=== PATIENT | female | born 1965 | race Caucasian/White ===

== ENCOUNTER 2017-09-18 18:59 | Inpatient (IN) ==
[2017-09-18 20:36] LABS: Basophils # 0.1 10*3/uL (0.0-0.2); Basophils % 0.6 % (0.0-0.8); Eosinophils # 0.2 10*3/uL (0.0-0.87); Eosinophils % 2.4 % (0.00-10.9); Hematocrit 39.3 VOL% (35.7-47.0); Hemoglobin 13.1 GM/DL (12.0-16.0); Immature Granulocytes % 0.2 %; Immature Granulocytes Absolute 0.02 #; Lymphocytes % 25.2 % (21.3-54.2); Mean Corpuscular HGB Conc 33.3 GM/DL (32-36); Mean Corpuscular Hemoglobin 29 PG (27-34); Mean Corpuscular Volume 87.9 FL (87-102); Mean Platelet Volume 10.1 FL (9.6-12.0); Monocytes # 0.7 10*3/uL (0.11-0.8); Neutrophils # 5.1 10*3/uL (1.4-7.4); Neutrophils % 63.6 % (38.7-73.9); Platelet Count 179 T/CUMM (130-400); Red Blood Count 4.47 MC/CUMM (3.8-5.5); Red Cell Distribution Width 13.3 % (9.3-17.3); White Blood Count 8.1 T/CUMM (4-12)
[2017-09-18 20:45] LABS: Apearance,Urine CLEAR (Clear); Bilirubin,Urine Negative (Negative); Blood, Urine Moderate mg/dL (Negative); Glucose,Urine (UA) Negative (Negative); Ketones,Urine Negative (Negative); Nitrite,Urine Negative (Negative); Protein,Urine Negative; RBC,Urine 1 /HPF (0-4); Squamous Epithelial Cell,Urine Occasional /HPF (0-10); Urine Color Yellow (Yellow); Urine Specific Gravity 1.006 (1.001-1.035); Urine Urobilinogen < 2.0 EU/DL (0.2-1.0); WBC,Urine <1 /HPF (0-6)
[2017-09-18 20:56] LABS: Bilirubin,Total 0.5 MG/DL (0.2-1.0); Osmolality,Calculated 276.5 MOS/KG (273-304); Potassium 2.7 MMOL/L (3.5-5.1); Total Protein 6.6 G/DL (6.4-8.3)
[2017-09-18] MEDS ORDERED: POTASSIUM CHLORIDE 20 MEQ TABLET PO STA (22:23)
[2017-09-18] MEDS ORDERED: metroNIDAZOLE INJ 500 MG in PREMIX 1 EACH IV STA (22:50)
[2017-09-18] MEDS ORDERED: LEVOFLOXACIN INJ 500 MG in PREMIX 1 EACH IV STA (22:50)
[2017-09-18] MEDS ORDERED: MORPHINE 2 MG/1 ML SYRINGE IV PRN (22:51)
[2017-09-18] MEDS ORDERED: ONDANSETRON 4 MG/2 ML VIAL IV PRN (22:51)
[2017-09-18] MEDS ORDERED: SODIUM CHLORIDE 0.9% 1,000 ML IV SCH (23:00)
[2017-09-18] MEDS ORDERED: LEVOFLOXACIN INJ 100 ML IV ONE (23:03)
[2017-09-18] MEDS ORDERED: POTASSIUM CHLORIDE 20 MEQ TABLET PO ONE (23:03)
[2017-09-18] MEDS ORDERED: SODIUM CHLOR 0.9% KCL 40 MEQ 40 MEQ/1,000 ML BAG IV ONE (23:31)
[2017-09-18] MEDS: SODIUM CHLOR 0.9% KCL 40 MEQ 40 MEQ/1,000 ML BAG IV SCH (23:31)
[2017-09-19 06:14] LABS: Basophils % 0.5 % (0.0-0.8); Eosinophils # 0.2 10*3/uL (0.0-0.87); Eosinophils % 3.1 % (0.00-10.9); Hematocrit 37.1 VOL% (35.7-47.0); Hemoglobin 12.4 GM/DL (12.0-16.0); Immature Granulocytes % 0.4 %; Immature Granulocytes Absolute 0.02 #; Lymphocytes # 1.8 10*3/uL (1.4-4.0); Lymphocytes % 33.3 % (21.3-54.2); Mean Corpuscular HGB Conc 33.4 GM/DL (32-36); Mean Corpuscular Hemoglobin 29 PG (27-34); Mean Corpuscular Volume 87.7 FL (87-102); Mean Platelet Volume 10.8 FL (9.6-12.0); Monocytes # 0.5 10*3/uL (0.11-0.8); Monocytes % 8.5 % (1.7-12.7); Neutrophils % 54.2 % (38.7-73.9); Platelet Count 158 T/CUMM (130-400); Red Blood Count 4.23 MC/CUMM (3.8-5.5); Red Cell Distribution Width 13.5 % (9.3-17.3); White Blood Count 5.5 T/CUMM (4-12)
[2017-09-19 07:39] LABS: Calcium 7.7 MG/DL (8.5-10.1); Osmolality,Calculated 283.8 MOS/KG (273-304); Potassium 3.4 MMOL/L (3.5-5.1)
[2017-09-19] MEDS ORDERED: predniSONE 5 MG TABLET PO SCH (09:00)
[2017-09-19] MEDS ORDERED: LISINOPRIL 10 MG TABLET PO SCH (09:00)
[2017-09-19] MEDS: metroNIDAZOLE INJ 500 MG in PREMIX 1 EACH IV SCH ×2 (09:47→17:51)
[2017-09-19] MEDS: SODIUM CHLOR 0.9% KCL 40 MEQ 40 MEQ/1,000 ML BAG IV SCH (11:05)
[2017-09-19] MEDS: ESTRADIOL 1 MG TABLET PO SCH (11:06)
[2017-09-19] MEDS: PANTOPRAZOLE 40 MG TABLET PO SCH (11:07)
[2017-09-19] MEDS: SERTRALINE 50 MG TABLET PO SCH (11:07)
[2017-09-19] MEDS ORDERED: POTASSIUM CHLORIDE 20 MEQ TABLET PO PRN (13:56)
[2017-09-19] MEDS ORDERED: POTASSIUM CHLORIDE 20 MEQ TABLET PO ONE (13:56)
[2017-09-19] MEDS ORDERED: SODIUM CHLORIDE 0.45% 1,000 ML IV SCH (14:00)
[2017-09-19] MEDS ORDERED: methylPREDNISolone SOD SUC 40 MG/1 ML VIAL IV SCH (15:00)
[2017-09-19] MEDS ORDERED: KETOROLAC 15 MG/1 ML VIAL IV ONE ×2 (15:00→15:30)
[2017-09-19] MEDS: methylPREDNISolone SOD SUC 40 MG/1 ML VIAL IV SCH ×2 (15:28→22:53)
[2017-09-19] MEDS: ALBUTEROL/IPRATROPIUM 3 ML NEB RESP TX SCH (19:33)
[2017-09-19] MEDS: LISINOPRIL 10 MG TABLET PO SCH (21:04)
[2017-09-19] MEDS: LEVOFLOXACIN INJ 500 MG in PREMIX 1 EACH IV SCH (21:04)
[2017-09-20] MEDS: metroNIDAZOLE INJ 500 MG in PREMIX 1 EACH IV SCH ×3 (01:56→16:03)
[2017-09-20] MEDS: ALBUTEROL/IPRATROPIUM 3 ML NEB RESP TX SCH ×4 (02:25→19:59)
[2017-09-20] MEDS: methylPREDNISolone SOD SUC 40 MG/1 ML VIAL IV SCH ×3 (06:11→22:48)
[2017-09-20 06:25] LABS: Basophils % 0.2 % (0.0-0.8); Hematocrit 39.6 VOL% (35.7-47.0); Hemoglobin 12.7 GM/DL (12.0-16.0); Immature Granulocytes % 0.4 %; Immature Granulocytes Absolute 0.02 #; Lymphocytes # 0.3 10*3/uL (1.4-4.0); Mean Corpuscular HGB Conc 32.1 GM/DL (32-36); Mean Corpuscular Hemoglobin 29 PG (27-34); Mean Corpuscular Volume 90.4 FL (87-102); Mean Platelet Volume 10.9 FL (9.6-12.0); Monocytes # 0.1 10*3/uL (0.11-0.8); Monocytes % 1.4 % (1.7-12.7); Neutrophils # 5.1 10*3/uL (1.4-7.4); Platelet Count 142 T/CUMM (130-400); Red Blood Count 4.38 MC/CUMM (3.8-5.5); Red Cell Distribution Width 13.2 % (9.3-17.3); White Blood Count 5.5 T/CUMM (4-12)
[2017-09-20 06:44] LABS: Calcium 8.2 MG/DL (8.5-10.1); Osmolality,Calculated 285.3 MOS/KG (273-304); Potassium 4.1 MMOL/L (3.5-5.1)
[2017-09-20 07:44] LABS: Band Neutrophils 2 % (0-10); Hypochromasia Slight; Lymphocytes 6 % (20-55); Platelet Estimate Adequate; Segmented Neutrophils 91 % (50-85); Total Cells Counted 100
[2017-09-20] MEDS: PANTOPRAZOLE 40 MG TABLET PO SCH (08:29)
[2017-09-20] MEDS: LISINOPRIL 10 MG TABLET PO SCH ×2 (08:29→20:50)
[2017-09-20] MEDS: ESTRADIOL 1 MG TABLET PO SCH (08:29)
[2017-09-20] MEDS: SERTRALINE 50 MG TABLET PO SCH (08:30)
[2017-09-20] MEDS ORDERED: MAGNESIUM SULF RIDER 2 GM in PREMIX 1 EACH IV ONE (09:31)
[2017-09-20] MEDS ORDERED: DEXTROSE 50% 25 GM/50 ML VIAL IV PRN (09:32)
[2017-09-20] MEDS ORDERED: GLUCAGON 1 MG VIAL IM PRN (09:32)
[2017-09-20] MEDS: INSULIN REGULAR 100 UNIT/ML SUBCUT SCH ×3 (12:50→20:57)
[2017-09-20] MEDS: LEVOFLOXACIN INJ 500 MG in PREMIX 1 EACH IV SCH (20:50)
[2017-09-21] MEDS: metroNIDAZOLE INJ 500 MG in PREMIX 1 EACH IV SCH ×3 (00:47→16:08)
[2017-09-21] MEDS: ALBUTEROL/IPRATROPIUM 3 ML NEB RESP TX SCH ×4 (01:10→19:30)
[2017-09-21] MEDS: methylPREDNISolone SOD SUC 40 MG/1 ML VIAL IV SCH ×3 (06:11→22:07)
[2017-09-21 06:45] LABS: Basophils % 0.1 % (0.0-0.8); Hematocrit 37.7 VOL% (35.7-47.0); Hemoglobin 12.2 GM/DL (12.0-16.0); Immature Granulocytes % 0.4 %; Immature Granulocytes Absolute 0.04 #; Lymphocytes # 0.5 10*3/uL (1.4-4.0); Lymphocytes % 4.6 % (21.3-54.2); Mean Corpuscular HGB Conc 32.4 GM/DL (32-36); Mean Corpuscular Hemoglobin 29 PG (27-34); Mean Corpuscular Volume 90.2 FL (87-102); Monocytes # 0.2 10*3/uL (0.11-0.8); Monocytes % 2.1 % (1.7-12.7); Neutrophils # 9.1 10*3/uL (1.4-7.4); Neutrophils % 92.8 % (38.7-73.9); Platelet Count 165 T/CUMM (130-400); Red Blood Count 4.18 MC/CUMM (3.8-5.5); Red Cell Distribution Width 13.8 % (9.3-17.3); White Blood Count 9.8 T/CUMM (4-12)
[2017-09-21 07:20] LABS: Calcium 8.8 MG/DL (8.5-10.1); Osmolality,Calculated 283.3 MOS/KG (273-304); Potassium 3.5 MMOL/L (3.5-5.1)
[2017-09-21 07:39] LABS: Eosinophils 1 % (0-10); Lymphocytes 3 % (20-55); Polychromasia Slight; Segmented Neutrophils 95 % (50-85); Total Cells Counted 100
[2017-09-21 07:40] LABS: Hypochromasia Slight; Platelet Estimate Adequate
[2017-09-21] MEDS: SERTRALINE 50 MG TABLET PO SCH (08:52)
[2017-09-21] MEDS: ESTRADIOL 1 MG TABLET PO SCH (08:52)
[2017-09-21] MEDS: PANTOPRAZOLE 40 MG TABLET PO SCH (08:52)
[2017-09-21] MEDS: LISINOPRIL 10 MG TABLET PO SCH ×2 (08:53→21:46)
[2017-09-21] MEDS: INSULIN REGULAR 100 UNIT/ML SUBCUT SCH ×4 (08:54→21:47)
[2017-09-21] MEDS ORDERED: LOPERAMIDE 2 MG CAPSULE PO PRN (10:40)
[2017-09-21] MEDS: hydrALAZINE 20 MG/1 ML VIAL IV PRN ×2 (11:48→18:30)
[2017-09-21] MEDS: LEVOFLOXACIN INJ 500 MG in PREMIX 1 EACH IV SCH (21:47)
[2017-09-22] MEDS: ALBUTEROL/IPRATROPIUM 3 ML NEB RESP TX SCH ×3 (00:56→13:11)
[2017-09-22] MEDS: metroNIDAZOLE INJ 500 MG in PREMIX 1 EACH IV SCH ×3 (01:15→18:07)
[2017-09-22 06:06] LABS: Calcium 8.6 MG/DL (8.5-10.1); Osmolality,Calculated 283.1 MOS/KG (273-304); Potassium 3.4 MMOL/L (3.5-5.1)
[2017-09-22] MEDS: methylPREDNISolone SOD SUC 40 MG/1 ML VIAL IV SCH ×2 (06:19→18:07)
[2017-09-22] MEDS: INSULIN REGULAR 100 UNIT/ML SUBCUT SCH ×3 (08:44→18:07)
[2017-09-22] MEDS: LISINOPRIL 10 MG TABLET PO SCH (09:57)
[2017-09-22] MEDS: ESTRADIOL 1 MG TABLET PO SCH (09:57)
[2017-09-22] MEDS: SERTRALINE 50 MG TABLET PO SCH (09:57)
[2017-09-22] MEDS: PANTOPRAZOLE 40 MG TABLET PO SCH (09:57)
[2017-09-22 16:21] VITALS: BP 165/85
== END 2017-09-22 19:58 | disposition home or self-care (01) | DRG 760 ==
LOC: N.ED 18:59 → N.EDINP 22:51 → N.2E 23:38
PROVIDERS: ADMIT Internal Medicine; ATTEND Internal Medicine

== ENCOUNTER 2018-08-26 13:55 | Inpatient (IN) ==
[2018-08-26] MEDS ORDERED: ONDANSETRON 4 MG/2 ML VIAL IV PRN (14:03)
[2018-08-26] MEDS ORDERED: KETOROLAC 30 MG/1 ML VIAL IV PRN (14:03)
[2018-08-26] MEDS ORDERED: MAGNESIUM HYDROXIDE SUSP 30 ML UDCUP PO PRN (14:03)
[2018-08-26] MEDS ORDERED: ACETAMINOPHEN 325 MG TABLET PO PRN (14:03)
[2018-08-26] MEDS ORDERED: traMADol 50 MG TABLET PO PRN (14:13)
[2018-08-26] MEDS ORDERED: ALBUTEROL/IPRATROPIUM 3 ML NEB RESP TX PRN (14:13)
[2018-08-26] MEDS ORDERED: hydrALAZINE 20 MG/1 ML VIAL IV PRN (14:15)
[2018-08-26 16:04] LABS: Basophils % 0.4 % (0.0-0.8); Eosinophils % 0.1 % (0.00-10.9); Hematocrit 43.1 VOL% (35.7-47.0); Hemoglobin 13.2 GM/DL (12.0-16.0); Immature Granulocytes % 0.6 %; Immature Granulocytes Absolute 0.04 #; Lymphocytes # 1.4 10*3/uL (1.4-4.0); Lymphocytes % 19.9 % (21.3-54.2); Mean Corpuscular HGB Conc 30.6 GM/DL (32-36); Mean Corpuscular Hemoglobin 29 PG (27-34); Mean Corpuscular Volume 95.8 FL (87-102); Mean Platelet Volume 10.2 FL (9.6-12.0); Monocytes # 0.4 10*3/uL (0.11-0.8); Monocytes % 5.4 % (1.7-12.7); Neutrophils # 5.3 10*3/uL (1.4-7.4); Neutrophils % 73.6 % (38.7-73.9); Platelet Count 167 T/CUMM (130-400); Red Cell Distribution Width 13.8 % (9.3-17.3); White Blood Count 7.2 T/CUMM (4-12)
[2018-08-26 16:24] LABS: Alanine Aminotransferase 31 U/L (13-56); Albumin 2.7 G/DL (3.4-5.0); Alkaline Phosphatase 113 U/L (45-117); Aspartate Amino Transferase 25 U/L (0-37); Bilirubin,Total < 0.39 MG/DL (0.2-1.0); Blood Urea Nitrogen 13 MG/DL (7-18); Calcium 8.3 MG/DL (8.5-10.1); Glucose 149 MG/DL (74-106); Osmolality,Calculated 279.5 MOS/KG (273-304); Potassium 3.3 MMOL/L (3.5-5.1); Sodium 139 MMOL/L (136-145); Total Protein 7.1 G/DL (6.4-8.3)
[2018-08-26] MEDS: LIDOCAINE 5% PATCH TRANSDERM SCH (18:21)
[2018-08-26] MEDS: SODIUM CHLORIDE 0.9% 1,000 ML IV SCH (18:27)
[2018-08-26] MEDS: ENOXAPARIN 40 MG/0.4 ML SYRINGE SUBCUT SCH (21:14)
[2018-08-26] MEDS: LISINOPRIL 20 MG TABLET PO SCH (21:15)
[2018-08-26] MEDS: DOCUSATE SODIUM 100 MG CAPSULE PO SCH ×2 (21:15→21:17)
[2018-08-26] MEDS ORDERED: MAGNESIUM SULF RIDER 2 GM in PREMIX 1 EACH IV ONE (21:31)
[2018-08-26] MEDS: POTASSIUM CHLORIDE 20 MEQ TABLET PO SCH (22:22)
[2018-08-26] MEDS: busPIRone 5 MG TABLET PO SCH (22:23)
[2018-08-26] MEDS: hydrALAZINE 25 MG TABLET PO SCH (22:24)
[2018-08-26] MEDS: MELATONIN 3 MG TABLET PO SCH (22:24)
[2018-08-27 04:44] LABS: Calcium 8.2 MG/DL (8.5-10.1); Osmolality,Calculated 277.5 MOS/KG (273-304); Potassium 3.4 MMOL/L (3.5-5.1)
[2018-08-27] MEDS: SODIUM CHLORIDE 0.9% 1,000 ML IV SCH (05:49)
[2018-08-27] MEDS: hydrALAZINE 25 MG TABLET PO SCH (08:31)
[2018-08-27] MEDS: busPIRone 5 MG TABLET PO SCH ×2 (08:32→21:39)
[2018-08-27] MEDS: DOCUSATE SODIUM 100 MG CAPSULE PO SCH ×2 (08:35→21:39)
[2018-08-27] MEDS: LIDOCAINE 5% PATCH TRANSDERM SCH (08:35)
[2018-08-27] MEDS: POTASSIUM CHLORIDE 20 MEQ TABLET PO SCH ×2 (08:35→21:39)
[2018-08-27] MEDS: ESTRADIOL 1 MG TABLET PO SCH (08:35)
[2018-08-27] MEDS: predniSONE 10 MG TABLET PO SCH (08:35)
[2018-08-27] MEDS: CITALOPRAM 40 MG TABLET PO SCH (08:35)
[2018-08-27] MEDS: PANTOPRAZOLE 40 MG TABLET PO SCH (08:36)
[2018-08-27] MEDS: LISINOPRIL 20 MG TABLET PO SCH ×2 (08:36→21:39)
[2018-08-27] MEDS ORDERED: POTASSIUM CHLORIDE 20 MEQ TABLET PO ONE (10:43)
[2018-08-27] MEDS: cloNIDine 0.1 MG TABLET PO SCH (21:39)
[2018-08-27] MEDS: ENOXAPARIN 40 MG/0.4 ML SYRINGE SUBCUT SCH (21:39)
[2018-08-27] MEDS: MELATONIN 3 MG TABLET PO SCH (21:40)
[2018-08-28 05:13] LABS: Calcium 8.3 MG/DL (8.5-10.1); Osmolality,Calculated 277.5 MOS/KG (273-304)
[2018-08-28] MEDS: ESTRADIOL 1 MG TABLET PO SCH (08:20)
[2018-08-28] MEDS: DOCUSATE SODIUM 100 MG CAPSULE PO SCH (08:20)
[2018-08-28] MEDS: busPIRone 5 MG TABLET PO SCH (08:20)
[2018-08-28] MEDS: CITALOPRAM 40 MG TABLET PO SCH (08:20)
[2018-08-28] MEDS: LIDOCAINE 5% PATCH TRANSDERM SCH (08:20)
[2018-08-28] MEDS: LISINOPRIL 20 MG TABLET PO SCH (08:20)
[2018-08-28] MEDS: POTASSIUM CHLORIDE 20 MEQ TABLET PO SCH (08:20)
[2018-08-28] MEDS: cloNIDine 0.1 MG TABLET PO SCH (08:20)
[2018-08-28] MEDS: PANTOPRAZOLE 40 MG TABLET PO SCH (08:20)
[2018-08-28] MEDS: predniSONE 10 MG TABLET PO SCH (08:20)
[2018-08-28 15:57] VITALS: BP 139/86
== END 2018-08-28 16:51 | disposition home or self-care (01) | DRG 305 ==
LOC: N.TELES 15:16
PROVIDERS: ADMIT Internal Medicine; ATTEND Internal Medicine

== ENCOUNTER 2019-02-03 08:04 | Inpatient (IN) ==
[2019-02-03] MEDS ORDERED: NALOXONE 0.4 MG/ML VIAL ONE (09:05)
[2019-02-03] MEDS ORDERED: NALOXONE 0.4 MG/ML VIAL IV STA (09:13)
[2019-02-03 09:24] LABS: Bilirubin,Total 0.5 MG/DL (0.2-1.0); Calcium 8.7 MG/DL (8.5-10.1); Osmolality,Calculated 285.3 MOS/KG (273-304); Total Protein 7.4 G/DL (6.4-8.3)
[2019-02-03 09:53] LABS: Basophils % 0.1 % (0.0-0.8); Hematocrit 44.7 VOL% (35.7-47.0); Hemoglobin 14.2 GM/DL (12.0-16.0); Immature Granulocytes % 0.5 %; Immature Granulocytes Absolute 0.08 #; Lymphocytes # 1.4 10*3/uL (1.4-4.0); Lymphocytes % 9.7 % (21.3-54.2); Mean Corpuscular HGB Conc 31.8 GM/DL (32-36); Mean Corpuscular Volume 93.3 FL (87-102); Mean Platelet Volume 9.9 FL (9.6-12.0); Monocytes % 6.1 % (1.7-12.7); Neutrophils % 83.6 % (38.7-73.9); Platelet Count 275 T/CUMM (130-400); Red Blood Count 4.79 MC/CUMM (3.8-5.5); Red Cell Distribution Width 14.1 % (9.3-17.3); White Blood Count 14.8 T/CUMM (4-12)
[2019-02-03 10:03] LABS: Apearance,Urine CLEAR (Clear); Bilirubin,Urine Negative (Negative); Blood, Urine Negative (Negative); Glucose,Urine (UA) >=500 mg/dL (Negative); Hyaline Casts,Urine 7 /LPF (0-3); Ketones,Urine Negative (Negative); Mucus,Urine Occasional /LPF (Occasional); Nitrite,Urine Negative (Negative); Protein,Urine >=500 MG/DL; RBC,Urine <1 /HPF (0-4); Squamous Epithelial Cell,Urine Occasional /HPF (0-10); Urine Color Yellow (Yellow); Urine Urobilinogen < 2.0 EU/DL (0.2-1.0)
[2019-02-03 10:37] LABS: Barbiturates Screen,Urine Negative (Negative); Benzodiazepines Screen,Urine Negative (Negative); Cannabinoid Screen,Urine Negative (Negative); Opiate Screen,Urine Positive (Negative); Phencyclidine Screen,Urine Negative (Negative)
[2019-02-03] MEDS ORDERED: ONDANSETRON 4 MG/2 ML VIAL IV PRN (14:14)
[2019-02-03] MEDS: SODIUM CHLORIDE 0.9% 1,000 ML IV SCH ×2 (14:55→23:17)
[2019-02-03] MEDS ORDERED: POTASSIUM CHLORIDE 20 MEQ TABLET PO ONE (15:14)
[2019-02-03] MEDS: cloNIDine 0.1 MG TABLET PO SCH ×2 (15:37→20:33)
[2019-02-03] MEDS: KETOROLAC 15 MG/1 ML VIAL IV PRN (15:37)
[2019-02-03] MEDS: cefTRIAXone 500 MG in SYRINGE 1 EACH IV SCH (17:15)
[2019-02-03] MEDS: methylPREDNISolone SOD SUC 40 MG/1 ML VIAL IV SCH (18:21)
[2019-02-03] MEDS: ALBUTEROL/IPRATROPIUM 3 ML NEB RESP TX SCH (19:00)
[2019-02-03] MEDS: DOCUSATE SODIUM 100 MG CAPSULE PO SCH (20:33)
[2019-02-03] MEDS ORDERED: LOPERAMIDE 2 MG CAPSULE PO PRN (22:47)
[2019-02-04] MEDS: ALBUTEROL/IPRATROPIUM 3 ML NEB RESP TX SCH ×4 (00:25→19:36)
[2019-02-04] MEDS: methylPREDNISolone SOD SUC 40 MG/1 ML VIAL IV SCH ×3 (04:34→18:48)
[2019-02-04 05:22] LABS: Eosinophils % 0.1 % (0.00-10.9); Hematocrit 37.4 VOL% (35.7-47.0); Hemoglobin 11.8 GM/DL (12.0-16.0); Immature Granulocytes % 0.6 %; Immature Granulocytes Absolute 0.05 #; Lymphocytes # 1.4 10*3/uL (1.4-4.0); Lymphocytes % 15.4 % (21.3-54.2); Mean Corpuscular HGB Conc 31.6 GM/DL (32-36); Mean Corpuscular Volume 96.4 FL (87-102); Mean Platelet Volume 10.4 FL (9.6-12.0); Monocytes % 6.4 % (1.7-12.7); Neutrophils % 77.5 % (38.7-73.9); Platelet Count 192 T/CUMM (130-400); Red Blood Count 3.88 MC/CUMM (3.8-5.5); Red Cell Distribution Width 14.3 % (9.3-17.3); White Blood Count 8.8 T/CUMM (4-12)
[2019-02-04 06:00] LABS: Albumin 2.5 G/DL (3.4-5.0); Bilirubin,Total 0.6 MG/DL (0.2-1.0); Total Protein 6.1 G/DL (6.4-8.3)
[2019-02-04] MEDS: SODIUM CHLORIDE 0.9% 1,000 ML IV SCH ×2 (06:08→14:20)
[2019-02-04] MEDS: ACETAMINOPHEN 325 MG TABLET PO PRN (09:37)
[2019-02-04] MEDS: DOCUSATE SODIUM 100 MG CAPSULE PO SCH ×2 (09:37→21:53)
[2019-02-04] MEDS: PANTOPRAZOLE 40 MG TABLET PO SCH (09:37)
[2019-02-04] MEDS: cloNIDine 0.1 MG TABLET PO SCH ×3 (09:37→21:53)
[2019-02-04] MEDS: cefTRIAXone 500 MG in SYRINGE 1 EACH IV SCH (15:51)
[2019-02-04] MEDS: KETOROLAC 15 MG/1 ML VIAL IV PRN (21:50)
[2019-02-05] MEDS: ALBUTEROL/IPRATROPIUM 3 ML NEB RESP TX SCH ×4 (00:03→19:05)
[2019-02-05] MEDS ORDERED: hydrALAZINE 20 MG/1 ML VIAL IV ONE (01:23)
[2019-02-05] MEDS: SODIUM CHLORIDE 0.9% 1,000 ML IV SCH ×3 (01:56→15:15)
[2019-02-05] MEDS: methylPREDNISolone SOD SUC 40 MG/1 ML VIAL IV SCH ×3 (03:44→18:15)
[2019-02-05 04:52] LABS: Basophils % 0.1 % (0.0-0.8); Hemoglobin 11.7 GM/DL (12.0-16.0); Immature Granulocytes % 0.9 %; Immature Granulocytes Absolute 0.08 #; Lymphocytes # 0.7 10*3/uL (1.4-4.0); Lymphocytes % 7.6 % (21.3-54.2); Mean Corpuscular HGB Conc 30.8 GM/DL (32-36); Mean Corpuscular Volume 97.4 FL (87-102); Monocytes % 5.1 % (1.7-12.7); Neutrophils % 86.3 % (38.7-73.9); Platelet Count 192 T/CUMM (130-400); Red Cell Distribution Width 14.2 % (9.3-17.3); White Blood Count 9.3 T/CUMM (4-12)
[2019-02-05] MEDS ORDERED: MAGNESIUM SULF RIDER 2 GM in PREMIX 1 EACH IV ONE (07:04)
[2019-02-05 07:24] LABS: Calcium 7.8 MG/DL (8.5-10.1); Osmolality,Calculated 287.7 MOS/KG (273-304)
[2019-02-05] MEDS: cloNIDine 0.1 MG TABLET PO SCH ×3 (08:53→21:11)
[2019-02-05] MEDS: DOCUSATE SODIUM 100 MG CAPSULE PO SCH ×2 (08:53→21:11)
[2019-02-05] MEDS: PANTOPRAZOLE 40 MG TABLET PO SCH (08:53)
[2019-02-05] MEDS: traMADol 50 MG TABLET PO PRN ×3 (08:58→21:11)
[2019-02-05] MEDS: cefTRIAXone 500 MG in SYRINGE 1 EACH IV SCH (15:30)
[2019-02-05] MEDS: hydrALAZINE 20 MG/1 ML VIAL IV PRN (16:41)
[2019-02-05] MEDS: LOSARTAN/HCTZ 50-12.5 MG TABLET PO SCH (16:41)
[2019-02-05] MEDS: COLESTIPOL 1 GM TABLET PO SCH (21:11)
[2019-02-05] MEDS: POTASSIUM CHLORIDE 20 MEQ TABLET PO PRN (22:14)
[2019-02-06] MEDS: ALBUTEROL/IPRATROPIUM 3 ML NEB RESP TX SCH ×4 (00:39→19:30)
[2019-02-06] MEDS: POTASSIUM CHLORIDE 20 MEQ TABLET PO PRN ×3 (01:31→09:05)
[2019-02-06] MEDS: hydrALAZINE 20 MG/1 ML VIAL IV PRN ×2 (01:32→09:04)
[2019-02-06] MEDS: methylPREDNISolone SOD SUC 40 MG/1 ML VIAL IV SCH ×3 (04:45→18:21)
[2019-02-06 07:27] LABS: Calcium 8.9 MG/DL (8.5-10.1); Osmolality,Calculated 282.1 MOS/KG (273-304)
[2019-02-06] MEDS: LOSARTAN/HCTZ 50-12.5 MG TABLET PO SCH (09:05)
[2019-02-06] MEDS: COLESTIPOL 1 GM TABLET PO SCH ×2 (09:05→21:59)
[2019-02-06] MEDS: DOCUSATE SODIUM 100 MG CAPSULE PO SCH ×2 (09:05→21:59)
[2019-02-06] MEDS: traMADol 50 MG TABLET PO PRN ×2 (09:05→21:59)
[2019-02-06] MEDS: cloNIDine 0.1 MG TABLET PO SCH ×4 (09:06→21:59)
[2019-02-06] MEDS: PANTOPRAZOLE 40 MG TABLET PO SCH (09:08)
[2019-02-06] MEDS ORDERED: VILAZODONE PO SCH (16:30)
[2019-02-06] MEDS: cefTRIAXone 500 MG in SYRINGE 1 EACH IV SCH (18:06)
[2019-02-06] MEDS ORDERED: CHLORTHALIDONE 25 MG TABLET PO SCH (19:38)
[2019-02-06] MEDS: VALSARTAN 160 MG TABLET PO SCH (19:46)
[2019-02-06] MEDS: CHLORTHALIDONE 25 MG TABLET PO SCH (19:46)
[2019-02-07] MEDS: ALBUTEROL/IPRATROPIUM 3 ML NEB RESP TX SCH ×3 (01:24→08:48)
[2019-02-07] MEDS: hydrALAZINE 20 MG/1 ML VIAL IV PRN (03:49)
[2019-02-07] MEDS: methylPREDNISolone SOD SUC 40 MG/1 ML VIAL IV SCH ×2 (03:50→10:46)
[2019-02-07] MEDS: COLESTIPOL 1 GM TABLET PO SCH (08:29)
[2019-02-07] MEDS: CHLORTHALIDONE 25 MG TABLET PO SCH (08:29)
[2019-02-07] MEDS: ACETAMINOPHEN 325 MG TABLET PO PRN (08:29)
[2019-02-07] MEDS: VALSARTAN 160 MG TABLET PO SCH (08:30)
[2019-02-07] MEDS: DOCUSATE SODIUM 100 MG CAPSULE PO SCH (08:30)
[2019-02-07] MEDS: cloNIDine 0.1 MG TABLET PO SCH (08:30)
[2019-02-07] MEDS: PANTOPRAZOLE 40 MG TABLET PO SCH (08:30)
[2019-02-07] MEDS ORDERED: VALSARTAN 160 MG TABLET PO SCH ×2 (09:00→19:37)
[2019-02-07] MEDS ORDERED: CHLORTHALIDONE 25 MG TABLET PO SCH ×2 (09:00→19:37)
[2019-02-07 12:11] VITALS: BP 153/99
== END 2019-02-07 12:40 | disposition home or self-care (01) | DRG 884 ==
LOC: N.ED 08:04 → N.EDINP 11:32 → N.5E 14:05
PROVIDERS: ADMIT Internal Medicine; ATTEND Internal Medicine

== ENCOUNTER 2019-07-26 22:06 | Observation (INO) ==
[2019-07-27 01:57] LABS: Basophils % 0.3 % (0.0-0.8); Eosinophils % 0.3 % (0.00-10.9); Hemoglobin 14.3 GM/DL (12.0-16.0); Immature Granulocytes % 0.5 %; Immature Granulocytes Absolute 0.06 #; Lymphocytes # 2.8 10*3/uL (1.4-4.0); Lymphocytes % 22.6 % (21.3-54.2); Mean Corpuscular HGB Conc 32.5 GM/DL (32-36); Mean Corpuscular Volume 89.4 FL (87-102); Mean Platelet Volume 10.1 FL (9.6-12.0); Monocytes % 7.5 % (1.7-12.7); Neutrophils % 68.8 % (38.7-73.9); Platelet Count 283 T/CUMM (130-400); Red Blood Count 4.92 MC/CUMM (3.8-5.5); White Blood Count 12.4 T/CUMM (4-12)
[2019-07-27 02:19] LABS: Albumin 3.3 G/DL (3.4-5.0); Bilirubin,Total 0.4 MG/DL (0.2-1.0); Calcium 9.5 MG/DL (8.5-10.1); Osmolality,Calculated 269.2 MOS/KG (273-304); Total Protein 8.2 G/DL (6.4-8.3)
[2019-07-27] MEDS ORDERED: LEVOFLOXACIN INJ 500 MG in PREMIX 1 EACH IV STA (02:35)
[2019-07-27] MEDS ORDERED: ONDANSETRON 4 MG/2 ML VIAL IV ONE (02:35)
[2019-07-27] MEDS ORDERED: MORPHINE 4 MG/1 ML VIAL IV STA (02:35)
[2019-07-27] MEDS ORDERED: ONDANSETRON 4 MG/2 ML VIAL IV PRN (02:49)
[2019-07-27] MEDS: SODIUM CHLORIDE 0.9% 1,000 ML IV SCH ×3 (05:51→21:31)
[2019-07-27] MEDS: MORPHINE 4 MG/1 ML VIAL IV PRN ×3 (05:51→21:47)
[2019-07-27 05:52] LABS: Basophils # 0.1 10*3/uL (0.0-0.2); Basophils % 0.5 % (0.0-0.8); Eosinophils # 0.1 10*3/uL (0.0-0.87); Eosinophils % 1.1 % (0.00-10.9); Hematocrit 42.2 VOL% (35.7-47.0); Hemoglobin 13.8 GM/DL (12.0-16.0); Immature Granulocytes % 0.3 %; Immature Granulocytes Absolute 0.04 #; Lymphocytes # 2.9 10*3/uL (1.4-4.0); Lymphocytes % 23.9 % (21.3-54.2); Mean Corpuscular HGB Conc 32.7 GM/DL (32-36); Mean Corpuscular Volume 89.6 FL (87-102); Mean Platelet Volume 10.1 FL (9.6-12.0); Monocytes % 8.6 % (1.7-12.7); Neutrophils % 65.6 % (38.7-73.9); Platelet Count 291 T/CUMM (130-400); Red Blood Count 4.71 MC/CUMM (3.8-5.5); White Blood Count 12.3 T/CUMM (4-12)
[2019-07-27 06:27] LABS: Bilirubin,Total 0.6 MG/DL (0.2-1.0); Calcium 9.2 MG/DL (8.5-10.1); Osmolality,Calculated 271.1 MOS/KG (273-304); Total Protein 7.9 G/DL (6.4-8.3)
[2019-07-27] MEDS ORDERED: cefTRIAXone 500 MG in SYRINGE 1 EACH IV SCH ×2 (08:00→08:30)
[2019-07-27] MEDS: methylPREDNISolone SOD SUC 40 MG/1 ML VIAL IV SCH ×3 (08:49→17:01)
[2019-07-27] MEDS: ACETAMINOPHEN 325 MG TABLET PO PRN (08:51)
[2019-07-27] MEDS: busPIRone 5 MG TABLET PO SCH ×2 (08:52→21:30)
[2019-07-27] MEDS: DOCUSATE SODIUM 100 MG CAPSULE PO SCH ×2 (08:53→21:30)
[2019-07-27] MEDS: COLESTIPOL 1 GM TABLET PO SCH ×2 (08:55→21:30)
[2019-07-27] MEDS ORDERED: lisinopriL 20 MG TABLET PO SCH (09:00)
[2019-07-27] MEDS: cefTRIAXone 500 MG in SYRINGE 1 EACH IV SCH (09:01)
[2019-07-27] MEDS: PANTOPRAZOLE 40 MG TABLET PO SCH (09:46)
[2019-07-27] MEDS: ESTRADIOL 1 MG TABLET PO SCH (09:46)
[2019-07-27] MEDS: KETOROLAC 30 MG/1 ML VIAL IM SCH ×2 (09:47→17:01)
[2019-07-27] MEDS: ALBUTEROL/IPRATROPIUM 3 ML NEB RESP TX SCH ×2 (12:06→20:15)
[2019-07-27] MEDS: BUDESONIDE 0.25 MG/2 ML NEB RESP TX SCH ×2 (12:06→20:15)
[2019-07-27] MEDS: QUEtiapine 25 MG TABLET PO SCH (21:30)
[2019-07-28] MEDS: ALBUTEROL/IPRATROPIUM 3 ML NEB RESP TX SCH ×4 (01:10→19:13)
[2019-07-28] MEDS: KETOROLAC 30 MG/1 ML VIAL IM SCH ×3 (01:40→17:00)
[2019-07-28] MEDS ORDERED: LEVOFLOXACIN INJ 500 MG in PREMIX 1 EACH IV SCH (03:00)
[2019-07-28] MEDS: methylPREDNISolone SOD SUC 40 MG/1 ML VIAL IV SCH ×3 (05:56→23:08)
[2019-07-28] MEDS: BUDESONIDE 0.25 MG/2 ML NEB RESP TX SCH ×2 (07:18→19:13)
[2019-07-28] MEDS: SODIUM CHLORIDE 0.9% 1,000 ML IV SCH (09:21)
[2019-07-28] MEDS: cefTRIAXone 500 MG in SYRINGE 1 EACH IV SCH (09:22)
[2019-07-28] MEDS: DOCUSATE SODIUM 100 MG CAPSULE PO SCH ×2 (09:24→20:36)
[2019-07-28] MEDS: busPIRone 5 MG TABLET PO SCH ×2 (09:24→20:37)
[2019-07-28] MEDS: PANTOPRAZOLE 40 MG TABLET PO SCH (09:24)
[2019-07-28] MEDS: ESTRADIOL 1 MG TABLET PO SCH (09:24)
[2019-07-28] MEDS: COLESTIPOL 1 GM TABLET PO SCH ×2 (09:24→20:37)
[2019-07-28 10:54] LABS: Basophils % 0.1 % (0.0-0.8); Hematocrit 36.9 VOL% (35.7-47.0); Immature Granulocytes % 0.6 %; Immature Granulocytes Absolute 0.06 #; Lymphocytes # 0.5 10*3/uL (1.4-4.0); Lymphocytes % 5.6 % (21.3-54.2); Mean Corpuscular HGB Conc 30.6 GM/DL (32-36); Mean Corpuscular Volume 94.1 FL (87-102); Monocytes % 2.6 % (1.7-12.7); Neutrophils % 91.1 % (38.7-73.9); Red Blood Count 3.92 MC/CUMM (3.8-5.5); Red Cell Distribution Width 12.8 % (9.3-17.3); White Blood Count 9.5 T/CUMM (4-12)
[2019-07-28 10:59] LABS: Hemoglobin 11.3 GM/DL (12.0-16.0); Platelet Count 186 T/CUMM (130-400)
[2019-07-28 11:15] LABS: Lymphocytes 7 % (20-55); Platelet Estimate Adequate; Segmented Neutrophils 91 % (50-85); Total Cells Counted 100
[2019-07-28] MEDS: QUEtiapine 25 MG TABLET PO SCH (20:36)
[2019-07-28] MEDS: MORPHINE 4 MG/1 ML VIAL IV PRN (20:37)
[2019-07-29] MEDS: ALBUTEROL/IPRATROPIUM 3 ML NEB RESP TX SCH ×2 (00:34→07:43)
[2019-07-29] MEDS: KETOROLAC 30 MG/1 ML VIAL IM SCH ×2 (01:59→09:22)
[2019-07-29] MEDS: methylPREDNISolone SOD SUC 40 MG/1 ML VIAL IV SCH (05:50)
[2019-07-29] MEDS: BUDESONIDE 0.25 MG/2 ML NEB RESP TX SCH (07:43)
[2019-07-29] MEDS: busPIRone 5 MG TABLET PO SCH (09:21)
[2019-07-29] MEDS: DOCUSATE SODIUM 100 MG CAPSULE PO SCH (09:21)
[2019-07-29] MEDS: PANTOPRAZOLE 40 MG TABLET PO SCH (09:21)
[2019-07-29] MEDS: COLESTIPOL 1 GM TABLET PO SCH (09:21)
[2019-07-29] MEDS: ESTRADIOL 1 MG TABLET PO SCH (09:21)
[2019-07-29] MEDS: cefTRIAXone 500 MG in SYRINGE 1 EACH IV SCH (09:23)
[2019-07-29] MEDS: ACETAMINOPHEN 325 MG TABLET PO PRN (15:00)
[2019-07-29 16:53] VITALS: BP 147/80
== END 2019-07-29 18:43 | disposition home or self-care (01) ==
LOC: N.EDINP 22:06 → N.ED 22:06 → N.2W 07-27 04:16
PROVIDERS: ADMIT Internal Medicine; ATTEND Internal Medicine

== ENCOUNTER 2020-10-11 18:19 | Inpatient (IN) ==
[2020-10-11] MEDS ORDERED: MORPHINE 4 MG/1 ML VIAL IV STA (19:01)
[2020-10-11] MEDS ORDERED: ONDANSETRON 4 MG/2 ML VIAL IV STA (19:01)
[2020-10-11] MEDS ORDERED: SODIUM CHLORIDE 0.9% 1,000 ML IV STA (19:01)
[2020-10-11] MEDS ORDERED: METOCLOPRAMIDE 10 MG/2 ML VIAL IV STA (19:01)
[2020-10-11] MEDS ORDERED: PANTOPRAZOLE 40 MG VIAL IV STA (19:01)
[2020-10-11 19:31] LABS: Basophils # 0.1 10*3/uL (0.0-0.2); Basophils % 0.4 % (0.0-0.8); Eosinophils # 0.2 10*3/uL (0.0-0.87); Eosinophils % 1.8 % (0.00-10.9); Hematocrit 50.6 VOL% (35.7-47.0); Hemoglobin 16.6 GM/DL (12.0-16.0); Immature Granulocytes % 0.5 %; Immature Granulocytes Absolute 0.06 #; Lymphocytes # 2.5 10*3/uL (1.4-4.0); Lymphocytes % 20.8 % (21.3-54.2); Mean Corpuscular HGB Conc 32.8 GM/DL (32-36); Mean Corpuscular Volume 86.8 FL (87-102); Mean Platelet Volume 9.7 FL (9.6-12.0); Neutrophils % 70.5 % (38.7-73.9); Platelet Count 240 T/CUMM (130-400); Red Blood Count 5.83 MC/CUMM (3.8-5.5); Red Cell Distribution Width 14.4 % (9.3-17.3)
[2020-10-11 19:48] LABS: Albumin 3.4 G/DL (3.4-5.0); Bilirubin,Total 0.4 MG/DL (0.2-1.0); Calcium 8.8 MG/DL (8.5-10.1); Osmolality,Calculated 281.1 MOS/KG (273-304); Potassium 2.6 MMOL/L (3.5-5.1); Total Protein 7.6 G/DL (6.4-8.2)
[2020-10-11 20:07] LABS: Bacteria,Urine Occasional /HPF (Few); Bilirubin,Urine Negative (Negative); Blood, Urine Small mg/dL (Negative); Glucose,Urine (UA) Negative (Negative); Hyaline Casts,Urine 3 /LPF (0-3); Ketones,Urine Negative (Negative); Mucus,Urine Occasional /LPF (Occasional); Nitrite,Urine Negative (Negative); Protein,Urine Negative; RBC,Urine 1 /HPF (0-4); Squamous Epithelial Cell,Urine Occasional /HPF (0-10); Urine Appearance CLEAR (Clear); Urine Color Yellow (Yellow); Urine Specific Gravity 1.017 (1.001-1.035); Urine Urobilinogen < 2.0 EU/DL (0.2-1.0); WBC,Urine 1 /HPF (0-6)
[2020-10-11 20:30] LABS: Barbiturates Screen,Urine Negative (Negative); Benzodiazepines Screen,Urine Negative (Negative); Cannabinoid Screen,Urine Negative (Negative); Opiate Screen,Urine Negative (Negative); Phencyclidine Screen,Urine Negative (Negative)
[2020-10-11] MEDS ORDERED: metroNIDAZOLE INJ 500 MG in PREMIX 1 EACH IV STA (20:44)
[2020-10-11] MEDS ORDERED: CIPROFLOXACIN INJ 400 MG in PREMIX 1 EACH IV STA (20:44)
[2020-10-11] MEDS ORDERED: ACETAMINOPHEN 325 MG TABLET PO PRN (21:16)
[2020-10-11] MEDS ORDERED: traMADol 50 MG TABLET PO PRN (21:16)
[2020-10-11] MEDS ORDERED: POTASSIUM CHLORIDE 20 MEQ TABLET PO ONE (22:31)
[2020-10-12] MEDS: LACTATED RINGERS 1,000 ML IV SCH ×2 (00:37→16:13)
[2020-10-12] MEDS: methylPREDNISolone SOD SUC 40 MG/1 ML VIAL IV SCH ×3 (02:23→17:24)
[2020-10-12] MEDS: KETOROLAC 15 MG/1 ML VIAL IV SCH ×4 (02:24→20:49)
[2020-10-12 05:42] LABS: Basophils % 0.4 % (0.0-0.8); Eosinophils # 0.1 10*3/uL (0.0-0.87); Eosinophils % 1.1 % (0.00-10.9); Hematocrit 43.3 VOL% (35.7-47.0); Hemoglobin 14.4 GM/DL (12.0-16.0); Immature Granulocytes % 0.7 %; Immature Granulocytes Absolute 0.07 #; Lymphocytes % 9.8 % (21.3-54.2); Mean Corpuscular HGB Conc 33.3 GM/DL (32-36); Mean Corpuscular Volume 87.1 FL (87-102); Mean Platelet Volume 10.2 FL (9.6-12.0); Monocytes % 3.5 % (1.7-12.7); Neutrophils % 84.5 % (38.7-73.9); Platelet Count 157 T/CUMM (130-400); Red Blood Count 4.97 MC/CUMM (3.8-5.5); Red Cell Distribution Width 14.6 % (9.3-17.3)
[2020-10-12] MEDS: metroNIDAZOLE INJ 500 MG in PREMIX 1 EACH IV SCH ×3 (05:55→23:10)
[2020-10-12 06:21] LABS: Calcium 7.8 MG/DL (8.5-10.1); Osmolality,Calculated 280.3 MOS/KG (273-304); Potassium 3.5 MMOL/L (3.5-5.1)
[2020-10-12] MEDS: DOCUSATE SODIUM 100 MG CAPSULE PO SCH ×2 (09:18→20:47)
[2020-10-12] MEDS: POTASSIUM CHLORIDE 20 MEQ TABLET PO SCH ×2 (09:18→20:47)
[2020-10-12] MEDS: PANTOPRAZOLE 40 MG TABLET PO SCH (09:19)
[2020-10-12] MEDS: CIPROFLOXACIN INJ 400 MG in PREMIX 1 EACH IV SCH ×2 (09:22→20:47)
[2020-10-12] MEDS ORDERED: MAGNESIUM SULF RIDER 2 GM in PREMIX 1 EACH IV ONE (12:50)
[2020-10-12] MEDS ORDERED: BISACODYL 5 MG TABLET PO ONE (15:00)
[2020-10-12] MEDS: lisinopriL 20 MG TABLET PO SCH (15:41)
[2020-10-12] MEDS: SERTRALINE 100 MG TABLET PO SCH (15:41)
[2020-10-12] MEDS: LORATADINE 10 MG TABLET PO SCH (15:42)
[2020-10-12] MEDS: MORPHINE 4 MG/1 ML VIAL IV PRN (17:24)
[2020-10-12] MEDS ORDERED: POLYETHYLENE GLYCOL POWDER 255 GM BOTTLE PO ONE (18:00)
[2020-10-13] MEDS: KETOROLAC 15 MG/1 ML VIAL IV SCH ×4 (02:04→20:22)
[2020-10-13] MEDS: methylPREDNISolone SOD SUC 40 MG/1 ML VIAL IV SCH ×3 (02:04→18:13)
[2020-10-13] MEDS: LACTATED RINGERS 1,000 ML IV SCH (05:49)
[2020-10-13] MEDS: metroNIDAZOLE INJ 500 MG in PREMIX 1 EACH IV SCH ×3 (05:51→22:36)
[2020-10-13 06:34] LABS: INR 1.1; PT Patient Result 11.7 SECS (9.8-11.9)
[2020-10-13] MEDS ORDERED: DIAZEPAM 5 MG TABLET PO ONE (07:56)
[2020-10-13] MEDS ORDERED: LACTATED RINGERS 1,000 ML IV SCH (08:00)
[2020-10-13 10:57] LABS: Calcium 8.9 MG/DL (8.5-10.1); Osmolality,Calculated 284.3 MOS/KG (273-304); Potassium 4.1 MMOL/L (3.5-5.1)
[2020-10-13] MEDS: LORATADINE 10 MG TABLET PO SCH (11:03)
[2020-10-13] MEDS: CIPROFLOXACIN INJ 400 MG in PREMIX 1 EACH IV SCH ×2 (11:03→20:21)
[2020-10-13] MEDS: DOCUSATE SODIUM 100 MG CAPSULE PO SCH ×2 (11:03→20:23)
[2020-10-13] MEDS: MAGNESIUM OXIDE 400 MG TABLET PO SCH (11:03)
[2020-10-13] MEDS: POTASSIUM CHLORIDE 20 MEQ TABLET PO SCH ×2 (11:03→20:23)
[2020-10-13] MEDS: lisinopriL 20 MG TABLET PO SCH (11:04)
[2020-10-13] MEDS: PANTOPRAZOLE 40 MG TABLET PO SCH (11:16)
[2020-10-13] MEDS: SERTRALINE 100 MG TABLET PO SCH (11:16)
[2020-10-13] MEDS ORDERED: LIDOCAINE 2% 5 ML VIAL ONE (12:35)
[2020-10-13] MEDS ORDERED: propofoL 200 MG/20 ML VIAL IV ONE ×2 (12:35→12:57)
[2020-10-14] MEDS: KETOROLAC 15 MG/1 ML VIAL IV SCH ×4 (01:32→20:49)
[2020-10-14] MEDS: methylPREDNISolone SOD SUC 40 MG/1 ML VIAL IV SCH ×3 (01:33→17:41)
[2020-10-14] MEDS: LACTATED RINGERS 1,000 ML IV SCH ×2 (03:35→14:47)
[2020-10-14] MEDS: MORPHINE 4 MG/1 ML VIAL IV PRN (03:49)
[2020-10-14] MEDS ORDERED: VANCOMYCIN INJ 1,000 MG in SODIUM CHLORIDE 0.9% 250 ML IV ONE (05:00)
[2020-10-14] MEDS: metroNIDAZOLE INJ 500 MG in PREMIX 1 EACH IV SCH ×3 (05:23→22:08)
[2020-10-14 05:24] LABS: Calcium 8.7 MG/DL (8.5-10.1); Osmolality,Calculated 284.5 MOS/KG (273-304); Potassium 4.3 MMOL/L (3.5-5.1)
[2020-10-14] MEDS: CIPROFLOXACIN INJ 400 MG in PREMIX 1 EACH IV SCH ×2 (09:23→20:49)
[2020-10-14] MEDS: PANTOPRAZOLE 40 MG TABLET PO SCH (09:24)
[2020-10-14] MEDS: POTASSIUM CHLORIDE 20 MEQ TABLET PO SCH ×2 (09:24→20:49)
[2020-10-14] MEDS: MAGNESIUM OXIDE 400 MG TABLET PO SCH (09:24)
[2020-10-14] MEDS: SERTRALINE 100 MG TABLET PO SCH (09:24)
[2020-10-14] MEDS: DOCUSATE SODIUM 100 MG CAPSULE PO SCH ×2 (09:25→20:49)
[2020-10-14] MEDS: LORATADINE 10 MG TABLET PO SCH (09:25)
[2020-10-14] MEDS: lisinopriL 20 MG TABLET PO SCH (09:25)
[2020-10-14] MEDS: ONDANSETRON 4 MG/2 ML VIAL IV PRN (10:46)
[2020-10-14] MEDS: VANCOMYCIN INJ 750 MG in SODIUM CHLORIDE 0.9% 250 ML IV SCH (17:41)
[2020-10-15] MEDS: KETOROLAC 15 MG/1 ML VIAL IV SCH ×2 (01:14→09:18)
[2020-10-15] MEDS: methylPREDNISolone SOD SUC 40 MG/1 ML VIAL IV SCH ×3 (01:15→18:29)
[2020-10-15] MEDS: metroNIDAZOLE INJ 500 MG in PREMIX 1 EACH IV SCH ×3 (06:12→23:24)
[2020-10-15] MEDS: VANCOMYCIN INJ 750 MG in SODIUM CHLORIDE 0.9% 250 ML IV SCH ×2 (06:15→17:30)
[2020-10-15] MEDS: MORPHINE 4 MG/1 ML VIAL IV PRN ×2 (07:59→18:30)
[2020-10-15] MEDS: SERTRALINE 100 MG TABLET PO SCH (08:01)
[2020-10-15] MEDS: MAGNESIUM OXIDE 400 MG TABLET PO SCH (08:02)
[2020-10-15] MEDS: lisinopriL 20 MG TABLET PO SCH (08:02)
[2020-10-15] MEDS: LORATADINE 10 MG TABLET PO SCH (08:02)
[2020-10-15] MEDS: PANTOPRAZOLE 40 MG TABLET PO SCH (08:03)
[2020-10-15] MEDS: CIPROFLOXACIN INJ 400 MG in PREMIX 1 EACH IV SCH ×2 (08:04→20:50)
[2020-10-15] MEDS: POTASSIUM CHLORIDE 20 MEQ TABLET PO SCH ×2 (08:13→20:49)
[2020-10-15] MEDS: DOCUSATE SODIUM 100 MG CAPSULE PO SCH ×2 (09:18→20:59)
[2020-10-15 09:54] LABS: Alanine Aminotransferase 21 U/L (13-56); Albumin 2.8 G/DL (3.4-5.0); Alkaline Phosphatase 103 U/L (45-117); Aspartate Amino Transferase 21 U/L (0-37); Bilirubin,Direct < 0.100 MG/DL (0.0-0.20); Bilirubin,Indirect 0.3 MG/DL (0.0-1.0); Bilirubin,Total < 0.39 MG/DL (0.2-1.0); Total Protein 6.4 G/DL (6.4-8.2)
[2020-10-15] MEDS: DIPHENOXYLATE/ATROPINE 2.5-0.025 MG TABLET PO PRN (10:45)
[2020-10-15] MEDS: ALUMINUM/MAGNES/SIMETH MAX STR 30 ML UDCUP PO PRN (16:20)
[2020-10-15] MEDS: ONDANSETRON 4 MG/2 ML VIAL IV PRN (18:30)
[2020-10-15] MEDS: LACTATED RINGERS 1,000 ML IV SCH (20:59)
[2020-10-16] MEDS: ONDANSETRON 4 MG/2 ML VIAL IV PRN ×2 (00:17→09:10)
[2020-10-16] MEDS: hydrALAZINE 20 MG/1 ML VIAL IV PRN (00:40)
[2020-10-16] MEDS: methylPREDNISolone SOD SUC 40 MG/1 ML VIAL IV SCH ×3 (01:57→19:33)
[2020-10-16] MEDS: VANCOMYCIN INJ 750 MG in SODIUM CHLORIDE 0.9% 250 ML IV SCH ×2 (05:03→19:34)
[2020-10-16] MEDS: metroNIDAZOLE INJ 500 MG in PREMIX 1 EACH IV SCH ×3 (06:43→22:45)
[2020-10-16] MEDS: DIPHENOXYLATE/ATROPINE 2.5-0.025 MG TABLET PO PRN (06:49)
[2020-10-16] MEDS: MAGNESIUM OXIDE 400 MG TABLET PO SCH (09:04)
[2020-10-16] MEDS: LORATADINE 10 MG TABLET PO SCH (09:04)
[2020-10-16] MEDS: SERTRALINE 100 MG TABLET PO SCH (09:05)
[2020-10-16] MEDS: FUROSEMIDE 20 MG TABLET PO SCH (09:05)
[2020-10-16] MEDS: PANTOPRAZOLE 40 MG TABLET PO SCH (09:05)
[2020-10-16] MEDS: POTASSIUM CHLORIDE 20 MEQ TABLET PO SCH ×2 (09:05→20:36)
[2020-10-16] MEDS: lisinopriL 20 MG TABLET PO SCH (09:05)
[2020-10-16] MEDS: DOCUSATE SODIUM 100 MG CAPSULE PO SCH ×2 (09:08→20:36)
[2020-10-16] MEDS: ALUMINUM/MAGNES/SIMETH MAX STR 30 ML UDCUP PO PRN (09:09)
[2020-10-16] MEDS: CIPROFLOXACIN INJ 400 MG in PREMIX 1 EACH IV SCH ×2 (09:17→21:08)
[2020-10-16] MEDS: MORPHINE 4 MG/1 ML VIAL IV PRN (19:34)
[2020-10-16] MEDS: LACTATED RINGERS 1,000 ML IV SCH (20:38)
[2020-10-17] MEDS: hydrALAZINE 20 MG/1 ML VIAL IV PRN
[2020-10-17] MEDS: methylPREDNISolone SOD SUC 40 MG/1 ML VIAL IV SCH ×3 (03:52→20:44)
[2020-10-17] MEDS: metroNIDAZOLE INJ 500 MG in PREMIX 1 EACH IV SCH ×2 (05:14→15:37)
[2020-10-17] MEDS: MORPHINE 4 MG/1 ML VIAL IV PRN ×2 (06:10→20:54)
[2020-10-17 07:10] LABS: Basophils % 0.2 % (0.0-0.8); Eosinophils % 0.1 % (0.00-10.9); Hematocrit 43.8 VOL% (35.7-47.0); Hemoglobin 13.7 GM/DL (12.0-16.0); Immature Granulocytes % 0.9 %; Immature Granulocytes Absolute 0.09 #; Lymphocytes # 0.8 10*3/uL (1.4-4.0); Lymphocytes % 8.6 % (21.3-54.2); Mean Corpuscular HGB Conc 31.3 GM/DL (32-36); Mean Corpuscular Volume 89.6 FL (87-102); Mean Platelet Volume 10.3 FL (9.6-12.0); Monocytes % 5.2 % (1.7-12.7); Platelet Count 175 T/CUMM (130-400); Red Blood Count 4.89 MC/CUMM (3.8-5.5); Red Cell Distribution Width 14.9 % (9.3-17.3); White Blood Count 9.6 T/CUMM (4-12)
[2020-10-17 07:56] LABS: Alanine Aminotransferase 19 U/L (13-56); Albumin 2.8 G/DL (3.4-5.0); Alkaline Phosphatase 93 U/L (45-117); Aspartate Amino Transferase 18 U/L (0-37); Bilirubin,Total < 0.39 MG/DL (0.2-1.0); Blood Urea Nitrogen 21 MG/DL (7-18); Calcium 9.2 MG/DL (8.5-10.1); Carbon Dioxide 30 MMOL/L (21-32); Estimated Glom Filtration Rate 47 ML/MIN; Glucose 132 MG/DL (74-106); Osmolality,Calculated 279.7 MOS/KG (273-304); Potassium 4.7 MMOL/L (3.5-5.1); Sodium 138 MMOL/L (136-145); Total Protein 5.6 G/DL (6.4-8.2)
[2020-10-17] MEDS: VANCOMYCIN INJ 750 MG in SODIUM CHLORIDE 0.9% 250 ML IV SCH ×2 (08:52→20:45)
[2020-10-17] MEDS: lisinopriL 20 MG TABLET PO SCH (08:53)
[2020-10-17] MEDS: DIPHENOXYLATE/ATROPINE 2.5-0.025 MG TABLET PO PRN (08:53)
[2020-10-17] MEDS: LORATADINE 10 MG TABLET PO SCH (08:53)
[2020-10-17] MEDS: PANTOPRAZOLE 40 MG TABLET PO SCH (08:53)
[2020-10-17] MEDS: MAGNESIUM OXIDE 400 MG TABLET PO SCH (08:53)
[2020-10-17] MEDS: SERTRALINE 100 MG TABLET PO SCH (08:53)
[2020-10-17] MEDS: FUROSEMIDE 20 MG TABLET PO SCH (08:54)
[2020-10-17] MEDS: POTASSIUM CHLORIDE 20 MEQ TABLET PO SCH ×2 (08:56→20:44)
[2020-10-17] MEDS: DOCUSATE SODIUM 100 MG CAPSULE PO SCH ×2 (08:57→20:44)
[2020-10-17] MEDS: CIPROFLOXACIN INJ 400 MG in PREMIX 1 EACH IV SCH ×2 (11:07→20:45)
[2020-10-17 21:51] LABS: IgA Serum (MAYO) 332 mg/dL (61 - 356)
[2020-10-18] MEDS: methylPREDNISolone SOD SUC 40 MG/1 ML VIAL IV SCH ×2 (04:52→11:25)
[2020-10-18 07:59] LABS: Calcium 9.2 MG/DL (8.5-10.1); Osmolality,Calculated 276.8 MOS/KG (273-304); Potassium 5.4 MMOL/L (3.5-5.1)
[2020-10-18] MEDS: LACTATED RINGERS 1,000 ML IV SCH ×3 (08:11→15:20)
[2020-10-18] MEDS: VANCOMYCIN INJ 750 MG in SODIUM CHLORIDE 0.9% 250 ML IV SCH (09:00)
[2020-10-18] MEDS: metroNIDAZOLE INJ 500 MG in PREMIX 1 EACH IV SCH ×3 (09:02→16:05)
[2020-10-18] MEDS: MAGNESIUM OXIDE 400 MG TABLET PO SCH (09:03)
[2020-10-18] MEDS: POTASSIUM CHLORIDE 20 MEQ TABLET PO SCH ×2 (09:03→20:36)
[2020-10-18] MEDS: PANTOPRAZOLE 40 MG TABLET PO SCH (09:03)
[2020-10-18] MEDS: LORATADINE 10 MG TABLET PO SCH (09:03)
[2020-10-18] MEDS: FUROSEMIDE 20 MG TABLET PO SCH (09:03)
[2020-10-18] MEDS: DOCUSATE SODIUM 100 MG CAPSULE PO SCH (09:03)
[2020-10-18] MEDS: SERTRALINE 100 MG TABLET PO SCH (09:03)
[2020-10-18] MEDS: lisinopriL 20 MG TABLET PO SCH (09:03)
[2020-10-18] MEDS: CIPROFLOXACIN INJ 400 MG in PREMIX 1 EACH IV SCH (10:04)
[2020-10-19 06:15] LABS: Calcium 9.8 MG/DL (8.5-10.1); Osmolality,Calculated 278.8 MOS/KG (273-304); Potassium 4.7 MMOL/L (3.5-5.1)
[2020-10-19] MEDS: LORATADINE 10 MG TABLET PO SCH (08:38)
[2020-10-19] MEDS: POTASSIUM CHLORIDE 20 MEQ TABLET PO SCH (08:38)
[2020-10-19] MEDS: SERTRALINE 100 MG TABLET PO SCH (08:38)
[2020-10-19] MEDS: PANTOPRAZOLE 40 MG TABLET PO SCH (08:38)
[2020-10-19] MEDS: FUROSEMIDE 20 MG TABLET PO SCH (08:38)
[2020-10-19] MEDS: lisinopriL 20 MG TABLET PO SCH (08:38)
[2020-10-19] MEDS: MAGNESIUM OXIDE 400 MG TABLET PO SCH (08:38)
[2020-10-19] MEDS: MORPHINE 4 MG/1 ML VIAL IV PRN (09:04)
[2020-10-19 11:47] VITALS: BP 131/66
[2020-10-19] MEDS: DIPHENOXYLATE/ATROPINE 2.5-0.025 MG TABLET PO PRN (13:38)
[2020-10-23 10:06] LABS: Tissue Transglutaminase IgA Ab < 1.2 U/mL
== END 2020-10-19 14:30 | disposition home health service (06) | DRG 392 ==
LOC: N.ED 18:19 → N.EDINP 20:51 → N.3E 21:51
PROVIDERS: ADMIT Internal Medicine; ATTEND Internal Medicine

== ENCOUNTER 2020-10-20 00:45 | Inpatient (IN) ==
[2020-10-20] MEDS ORDERED: KETOROLAC 30 MG/1 ML VIAL IV STA (01:03)
[2020-10-20] MEDS ORDERED: SODIUM CHLORIDE 0.9% 1,000 ML IV STA (01:03)
[2020-10-20] MEDS ORDERED: ONDANSETRON 4 MG/2 ML VIAL IV STA (01:03)
[2020-10-20 01:35] LABS: Basophils # 0.1 10*3/uL (0.0-0.2); Basophils % 0.5 % (0.0-0.8); Eosinophils # 0.3 10*3/uL (0.0-0.87); Eosinophils % 1.6 % (0.00-10.9); Hematocrit 59.3 VOL% (35.7-47.0); Hemoglobin 18.8 GM/DL (12.0-16.0); Immature Granulocytes % 0.8 %; Immature Granulocytes Absolute 0.15 #; Lymphocytes # 5.4 10*3/uL (1.4-4.0); Lymphocytes % 27.1 % (21.3-54.2); Mean Corpuscular HGB Conc 31.7 GM/DL (32-36); Mean Platelet Volume 10.7 FL (9.6-12.0); Monocytes % 7.6 % (1.7-12.7); Neutrophils % 62.4 % (38.7-73.9); Platelet Count 351 T/CUMM (130-400); Red Blood Count 6.59 MC/CUMM (3.8-5.5); Red Cell Distribution Width 17.8 % (9.3-17.3); White Blood Count 19.7 T/CUMM (4-12)
[2020-10-20 01:59] LABS: Albumin 3.4 G/DL (3.4-5.0); Bilirubin,Total 0.7 MG/DL (0.2-1.0); Calcium 9.9 MG/DL (8.5-10.1); Osmolality,Calculated 278.2 MOS/KG (273-304); Potassium 5.4 MMOL/L (3.5-5.1); Total Protein 7.9 G/DL (6.4-8.2)
[2020-10-20] MEDS: DEXTROSE 5% 1,000 ML IV SCH ×3 (03:54→21:31)
[2020-10-20 04:09] LABS: Total Cells Counted 100
[2020-10-20 04:11] LABS: Lymphocytes 28 % (20-55); Segmented Neutrophils 71 % (50-85)
[2020-10-20 04:12] LABS: Platelet Estimate Adequate
[2020-10-20] MEDS: PANTOPRAZOLE 40 MG VIAL IV SCH (11:03)
[2020-10-20] MEDS: MORPHINE 4 MG/1 ML VIAL IV PRN ×2 (15:40→21:30)
[2020-10-20] MEDS: methylPREDNISolone SOD SUC 40 MG/1 ML VIAL IV SCH (18:56)
[2020-10-20] MEDS: metroNIDAZOLE INJ 250 MG in IV BAG 1 EACH IV SCH (18:57)
[2020-10-21] MEDS: metroNIDAZOLE INJ 250 MG in IV BAG 1 EACH IV SCH ×3 (01:56→17:27)
[2020-10-21] MEDS: SODIUM CHLORIDE 0.9% 1,000 ML IV SCH ×2 (01:57→11:36)
[2020-10-21] MEDS: MORPHINE 4 MG/1 ML VIAL IV PRN ×4 (05:00→20:31)
[2020-10-21 06:30] LABS: Basophils % 0.2 % (0.0-0.8); Eosinophils # 0.1 10*3/uL (0.0-0.87); Eosinophils % 0.9 % (0.00-10.9); Hematocrit 51.6 VOL% (35.7-47.0); Hemoglobin 16.7 GM/DL (12.0-16.0); Immature Granulocytes % 0.7 %; Immature Granulocytes Absolute 0.09 #; Lymphocytes # 2.1 10*3/uL (1.4-4.0); Mean Corpuscular HGB Conc 32.4 GM/DL (32-36); Mean Corpuscular Volume 89.9 FL (87-102); Mean Platelet Volume 12.2 FL (9.6-12.0); Monocytes % 7.2 % (1.7-12.7); Platelet Count 146 T/CUMM (130-400); Red Blood Count 5.74 MC/CUMM (3.8-5.5); Red Cell Distribution Width 15.9 % (9.3-17.3); White Blood Count 12.9 T/CUMM (4-12)
[2020-10-21] MEDS: methylPREDNISolone SOD SUC 40 MG/1 ML VIAL IV SCH ×2 (07:16→17:23)
[2020-10-21 08:21] LABS: Band Neutrophils 4 % (0-10); Eosinophils 1 % (0-10); Lymphocytes 19 % (20-55); Platelet Estimate Adequate; Segmented Neutrophils 71 % (50-85); Total Cells Counted 100
[2020-10-21] MEDS: MAGNESIUM OXIDE 400 MG TABLET PO SCH (08:57)
[2020-10-21] MEDS: LORATADINE 10 MG TABLET PO SCH (08:57)
[2020-10-21] MEDS: PANTOPRAZOLE 40 MG VIAL IV SCH (08:58)
[2020-10-21] MEDS: SERTRALINE 100 MG TABLET PO SCH (08:58)
[2020-10-21 09:00] LABS: Potassium 5.3 MMOL/L (3.5-5.1)
[2020-10-21 09:02] LABS: Calcium 8.7 MG/DL (8.5-10.1)
[2020-10-21 09:03] LABS: Albumin 2.7 G/DL (3.4-5.0); Osmolality,Calculated 272.2 MOS/KG (273-304)
[2020-10-21 09:08] LABS: Bilirubin,Total 0.8 MG/DL (0.2-1.0); Total Protein 6.4 G/DL (6.4-8.2)
[2020-10-21 15:52] LABS: Bilirubin,Urine Negative (Negative); Blood, Urine Negative (Negative); Glucose,Urine (UA) Negative (Negative); Ketones,Urine Negative (Negative); Mucus,Urine Occasional /LPF (Occasional); Nitrite,Urine Negative (Negative); Protein,Urine Negative; RBC,Urine <1 /HPF (0-4); Squamous Epithelial Cell,Urine Occasional /HPF (0-10); Urine Appearance CLEAR (Clear); Urine Color Straw (Yellow); Urine Specific Gravity 1.006 (1.001-1.035); Urine Urobilinogen < 2.0 EU/DL (0.2-1.0); WBC,Urine 1 /HPF (0-6)
[2020-10-22] MEDS: SODIUM CHLORIDE 0.9% 1,000 ML IV SCH ×2 (00:48→11:16)
[2020-10-22] MEDS: MORPHINE 4 MG/1 ML VIAL IV PRN ×4 (00:48→22:22)
[2020-10-22] MEDS: metroNIDAZOLE INJ 250 MG in IV BAG 1 EACH IV SCH ×3 (02:04→17:36)
[2020-10-22 05:51] LABS: Basophils % 0.2 % (0.0-0.8); Eosinophils # 0.1 10*3/uL (0.0-0.87); Eosinophils % 0.9 % (0.00-10.9); Hematocrit 44.1 VOL% (35.7-47.0); Hemoglobin 13.7 GM/DL (12.0-16.0); Immature Granulocytes % 0.3 %; Immature Granulocytes Absolute 0.04 #; Lymphocytes # 2.4 10*3/uL (1.4-4.0); Lymphocytes % 20.2 % (21.3-54.2); Mean Corpuscular HGB Conc 31.1 GM/DL (32-36); Mean Corpuscular Volume 91.9 FL (87-102); Mean Platelet Volume 10.9 FL (9.6-12.0); Monocytes % 8.4 % (1.7-12.7); Platelet Count 196 T/CUMM (130-400); Red Cell Distribution Width 15.2 % (9.3-17.3); White Blood Count 11.8 T/CUMM (4-12)
[2020-10-22 06:07] LABS: Albumin 2.7 G/DL (3.4-5.0); Bilirubin,Total 0.6 MG/DL (0.2-1.0); Osmolality,Calculated 276.8 MOS/KG (273-304); Total Protein 6.4 G/DL (6.4-8.2)
[2020-10-22] MEDS: methylPREDNISolone SOD SUC 40 MG/1 ML VIAL IV SCH ×2 (06:28→17:36)
[2020-10-22 06:36] LABS: Anisocytosis Slight; Band Neutrophils 2 % (0-10); Lymphocytes 25 % (20-55); Macrocytosis Slight; Platelet Estimate Normal; Segmented Neutrophils 66 % (50-85); Total Cells Counted 100
[2020-10-22] MEDS: PANTOPRAZOLE 40 MG VIAL IV SCH (09:22)
[2020-10-22] MEDS: MAGNESIUM OXIDE 400 MG TABLET PO SCH (09:22)
[2020-10-22] MEDS: SERTRALINE 100 MG TABLET PO SCH (09:23)
[2020-10-22] MEDS: LORATADINE 10 MG TABLET PO SCH (09:23)
[2020-10-23] MEDS: SODIUM CHLORIDE 0.9% 1,000 ML IV SCH ×2 (00:31→17:05)
[2020-10-23] MEDS: metroNIDAZOLE INJ 250 MG in IV BAG 1 EACH IV SCH ×3 (01:05→17:05)
[2020-10-23] MEDS: ONDANSETRON 4 MG/2 ML VIAL IV PRN (04:12)
[2020-10-23] MEDS: MORPHINE 4 MG/1 ML VIAL IV PRN (04:17)
[2020-10-23 05:27] LABS: Basophils % 0.1 % (0.0-0.8); Eosinophils % 0.3 % (0.00-10.9); Hematocrit 42.6 VOL% (35.7-47.0); Hemoglobin 13.5 GM/DL (12.0-16.0); Immature Granulocytes % 0.6 %; Immature Granulocytes Absolute 0.05 #; Lymphocytes # 1.7 10*3/uL (1.4-4.0); Lymphocytes % 18.7 % (21.3-54.2); Mean Corpuscular HGB Conc 31.7 GM/DL (32-36); Mean Corpuscular Volume 91.2 FL (87-102); Mean Platelet Volume 10.9 FL (9.6-12.0); Neutrophils % 73.3 % (38.7-73.9); Platelet Count 180 T/CUMM (130-400); Red Blood Count 4.67 MC/CUMM (3.8-5.5); Red Cell Distribution Width 15.1 % (9.3-17.3)
[2020-10-23 05:44] LABS: Albumin 2.8 G/DL (3.4-5.0); Bilirubin,Total 0.8 MG/DL (0.2-1.0); Calcium 9.2 MG/DL (8.5-10.1); Total Protein 6.9 G/DL (6.4-8.2)
[2020-10-23] MEDS: methylPREDNISolone SOD SUC 40 MG/1 ML VIAL IV SCH ×2 (05:48→17:05)
[2020-10-23] MEDS: MAGNESIUM OXIDE 400 MG TABLET PO SCH (09:12)
[2020-10-23] MEDS: LORATADINE 10 MG TABLET PO SCH (09:12)
[2020-10-23] MEDS: SERTRALINE 100 MG TABLET PO SCH (09:12)
[2020-10-23] MEDS: PANTOPRAZOLE 40 MG VIAL IV SCH (10:16)
[2020-10-23] MEDS ORDERED: hydrALAZINE 20 MG/1 ML VIAL ONE (12:46)
[2020-10-23] MEDS ORDERED: LIDOCAINE 2% 5 ML VIAL ONE (13:18)
[2020-10-23] MEDS ORDERED: propofoL 200 MG/20 ML VIAL IV ONE (13:18)
[2020-10-23] MEDS ORDERED: AMITRIPTYLINE 25 MG TABLET PO SCH (21:00)
[2020-10-24] MEDS: metroNIDAZOLE INJ 250 MG in IV BAG 1 EACH IV SCH ×3 (02:00→16:41)
[2020-10-24] MEDS: ONDANSETRON 4 MG/2 ML VIAL IV PRN (02:01)
[2020-10-24] MEDS: MORPHINE 4 MG/1 ML VIAL IV PRN ×2 (02:01→14:27)
[2020-10-24] MEDS: methylPREDNISolone SOD SUC 40 MG/1 ML VIAL IV SCH ×2 (06:00→17:08)
[2020-10-24] MEDS: SODIUM CHLORIDE 0.9% 1,000 ML IV SCH ×2 (07:02→17:08)
[2020-10-24] MEDS: SERTRALINE 100 MG TABLET PO SCH (08:32)
[2020-10-24] MEDS: PANTOPRAZOLE 40 MG VIAL IV SCH (08:32)
[2020-10-24] MEDS: LORATADINE 10 MG TABLET PO SCH (08:32)
[2020-10-24] MEDS: MAGNESIUM OXIDE 400 MG TABLET PO SCH (08:32)
[2020-10-24 16:19] VITALS: BP 142/74
[2020-10-24 19:26] LABS: CDT Result Negative (Negative); CDT Specimen Source STOOL
[2020-10-24] MEDS ORDERED: AMITRIPTYLINE 10 MG TABLET PO SCH (21:00)
== END 2020-10-24 20:00 | disposition home or self-care (01) | DRG 392 ==
LOC: N.ED 00:45 → N.EDINP 00:45 → N.5E 02:54
PROVIDERS: ADMIT Internal Medicine; ATTEND Internal Medicine

== ENCOUNTER 2022-02-01 10:13 | Observation (INO) ==
[2022-02-01] MEDS ORDERED: ONDANSETRON 4 MG/2 ML VIAL IV PRN (12:52)
[2022-02-01] MEDS ORDERED: ACETAMINOPHEN 325 MG TABLET PO PRN (12:52)
[2022-02-01] MEDS ORDERED: MAGNESIUM SULF RIDER 4 GM/100 ML PREMIX IV PRN (12:52)
[2022-02-01] MEDS ORDERED: POTASSIUM CHLORIDE RIDER 10 MEQ/100 ML PREMIX IV PRN (12:52)
[2022-02-01] MEDS ORDERED: cloNIDine 0.1 MG TABLET PO PRN (12:55)
[2022-02-01] MEDS ORDERED: hydrALAZINE 20 MG/1 ML VIAL IV PRN (12:55)
[2022-02-01 13:21] LABS: Basophils % 0.3 % (0.0-0.8); Eosinophils % 0.1 % (0.00-10.9); Hematocrit 49.2 VOL% (35.7-47.0); Hemoglobin 15.5 GM/DL (12.0-16.0); Immature Granulocytes % 0.4 %; Immature Granulocytes Absolute 0.05 #; Lymphocytes # 1.1 10*3/uL (1.4-4.0); Lymphocytes % 8.5 % (21.3-54.2); Mean Corpuscular HGB Conc 31.5 GM/DL (32-36); Mean Platelet Volume 9.9 FL (9.6-12.0); Monocytes # 0.3 10*3/uL (0.11-0.8); Neutrophils % 88.7 % (38.7-73.9); Platelet Count 209 T/CUMM (130-400); Red Blood Count 5.53 MC/CUMM (3.8-5.5); Red Cell Distribution Width 14.7 % (9.3-17.3); White Blood Count 12.5 T/CUMM (4-12)
[2022-02-01 13:51] LABS: Albumin 3.1 G/DL (3.4-5.0); Bilirubin,Total 0.7 MG/DL (0.20-1.00); Calcium 8.9 MG/DL (8.5-10.1); Osmolality,Calculated 287.4 MOS/KG (273-304); Potassium 3.1 MMOL/L (3.5-5.1); Total Protein 7.2 G/DL (6.4-8.2)
[2022-02-01] MEDS: hydrALAZINE 25 MG TABLET PO SCH ×2 (14:47→20:53)
[2022-02-01] MEDS: LOSARTAN 25 MG TABLET PO SCH (14:48)
[2022-02-01] MEDS: DOCUSATE SODIUM 100 MG CAPSULE PO SCH (20:53)
[2022-02-01] MEDS: QUEtiapine 25 MG TABLET PO SCH (20:53)
[2022-02-02 05:10] LABS: Basophils # 0.1 10*3/uL (0.0-0.2); Basophils % 0.6 % (0.0-0.8); Eosinophils # 0.1 10*3/uL (0.0-0.87); Eosinophils % 1.4 % (0.00-10.9); Hematocrit 45.6 VOL% (35.7-47.0); Hemoglobin 14.5 GM/DL (12.0-16.0); Immature Granulocytes % 0.4 %; Immature Granulocytes Absolute 0.03 #; Lymphocytes # 2.4 10*3/uL (1.4-4.0); Lymphocytes % 27.5 % (21.3-54.2); Mean Corpuscular HGB Conc 31.8 GM/DL (32-36); Mean Corpuscular Volume 89.1 FL (87-102); Mean Platelet Volume 9.9 FL (9.6-12.0); Monocytes # 0.6 10*3/uL (0.11-0.8); Monocytes % 7.1 % (1.7-12.7); Platelet Count 181 T/CUMM (130-400); Red Blood Count 5.12 MC/CUMM (3.8-5.5); Red Cell Distribution Width 15.4 % (9.3-17.3); White Blood Count 8.6 T/CUMM (4-12)
[2022-02-02 05:40] LABS: Albumin 2.5 G/DL (3.4-5.0); Bilirubin,Total 0.6 MG/DL (0.20-1.00); Calcium 8.4 MG/DL (8.5-10.1); Potassium 2.8 MMOL/L (3.5-5.1)
[2022-02-02] MEDS ORDERED: POTASSIUM CHLORIDE 20 MEQ TABLET PO ONE (07:45)
[2022-02-02] MEDS: LOSARTAN 25 MG TABLET PO SCH (09:19)
[2022-02-02] MEDS: PANTOPRAZOLE 40 MG TABLET PO SCH (09:19)
[2022-02-02] MEDS: SERTRALINE 100 MG TABLET PO SCH (09:19)
[2022-02-02] MEDS: FUROSEMIDE 40 MG TABLET PO SCH (09:19)
[2022-02-02] MEDS: predniSONE 10 MG TABLET PO SCH (09:20)
[2022-02-02] MEDS: DOCUSATE SODIUM 100 MG CAPSULE PO SCH ×2 (09:20→21:10)
[2022-02-02] MEDS: hydrALAZINE 25 MG TABLET PO SCH ×3 (09:20→21:10)
[2022-02-02] MEDS: NEBIVOLOL 5 MG TABLET PO SCH (09:20)
[2022-02-02] MEDS: MAGNESIUM SULF RIDER 2 GM/50 ML PREMIX IV PRN (09:20)
[2022-02-02] MEDS: POTASSIUM CHLORIDE 20 MEQ TABLET PO PRN ×2 (14:28→16:29)
[2022-02-02] MEDS: QUEtiapine 25 MG TABLET PO SCH (21:11)
[2022-02-03 05:27] LABS: Basophils % 0.4 % (0.0-0.8); Eosinophils # 0.1 10*3/uL (0.0-0.87); Eosinophils % 1.6 % (0.00-10.9); Immature Granulocytes % 0.2 %; Immature Granulocytes Absolute 0.02 #; Lymphocytes # 1.9 10*3/uL (1.4-4.0); Lymphocytes % 22.3 % (21.3-54.2); Mean Corpuscular HGB Conc 31.9 GM/DL (32-36); Mean Corpuscular Volume 90.4 FL (87-102); Mean Platelet Volume 10.3 FL (9.6-12.0); Monocytes # 0.6 10*3/uL (0.11-0.8); Monocytes % 7.3 % (1.7-12.7); Neutrophils % 68.2 % (38.7-73.9); Platelet Count 169 T/CUMM (130-400); Red Cell Distribution Width 15.4 % (9.3-17.3); White Blood Count 8.3 T/CUMM (4-12)
[2022-02-03 05:47] LABS: Calcium 8.5 MG/DL (8.5-10.1); Osmolality,Calculated 292.8 MOS/KG (273-304); Potassium 3.4 MMOL/L (3.5-5.1)
[2022-02-03] MEDS: DOCUSATE SODIUM 100 MG CAPSULE PO SCH ×3 (08:25→20:27)
[2022-02-03] MEDS: POTASSIUM CHLORIDE 20 MEQ TABLET PO PRN ×2 (09:17→11:10)
[2022-02-03] MEDS: FUROSEMIDE 40 MG TABLET PO SCH (09:18)
[2022-02-03] MEDS: NEBIVOLOL 5 MG TABLET PO SCH (09:18)
[2022-02-03] MEDS: hydrALAZINE 25 MG TABLET PO SCH ×3 (09:18→20:27)
[2022-02-03] MEDS: PANTOPRAZOLE 40 MG TABLET PO SCH (09:18)
[2022-02-03] MEDS: SERTRALINE 100 MG TABLET PO SCH (09:18)
[2022-02-03] MEDS: predniSONE 10 MG TABLET PO SCH (09:18)
[2022-02-03] MEDS: LOSARTAN 25 MG TABLET PO SCH (09:18)
[2022-02-03] MEDS: MAGNESIUM SULF RIDER 2 GM/50 ML PREMIX IV PRN (09:19)
[2022-02-03] MEDS ORDERED: LOPERAMIDE 2 MG CAPSULE PO PRN (17:36)
[2022-02-03] MEDS: QUEtiapine 25 MG TABLET PO SCH (20:26)
[2022-02-04 06:09] LABS: Basophils % 0.4 % (0.0-0.8); Eosinophils # 0.3 10*3/uL (0.0-0.87); Eosinophils % 2.3 % (0.00-10.9); Hematocrit 52.3 VOL% (35.7-47.0); Hemoglobin 16.4 GM/DL (12.0-16.0); Immature Granulocytes % 0.4 %; Immature Granulocytes Absolute 0.04 #; Lymphocytes # 2.2 10*3/uL (1.4-4.0); Lymphocytes % 19.6 % (21.3-54.2); Mean Corpuscular HGB Conc 31.4 GM/DL (32-36); Mean Corpuscular Volume 89.9 FL (87-102); Mean Platelet Volume 10.2 FL (9.6-12.0); Monocytes # 0.9 10*3/uL (0.11-0.8); Monocytes % 7.5 % (1.7-12.7); Neutrophils % 69.8 % (38.7-73.9); Red Blood Count 5.82 MC/CUMM (3.8-5.5); Red Cell Distribution Width 16.2 % (9.3-17.3)
[2022-02-04 06:10] LABS: Platelet Count 226 T/CUMM (130-400); White Blood Count 11.3 T/CUMM (4-12)
[2022-02-04 06:46] LABS: Calcium 9.7 MG/DL (8.5-10.1); Osmolality,Calculated 276.8 MOS/KG (273-304); Potassium 3.7 MMOL/L (3.5-5.1)
[2022-02-04] MEDS: SERTRALINE 100 MG TABLET PO SCH (08:29)
[2022-02-04] MEDS: predniSONE 10 MG TABLET PO SCH (08:29)
[2022-02-04] MEDS: PANTOPRAZOLE 40 MG TABLET PO SCH (08:29)
[2022-02-04] MEDS: LOSARTAN 25 MG TABLET PO SCH (08:29)
[2022-02-04] MEDS: FUROSEMIDE 40 MG TABLET PO SCH (08:29)
[2022-02-04] MEDS: NEBIVOLOL 5 MG TABLET PO SCH (08:29)
[2022-02-04] MEDS: hydrALAZINE 25 MG TABLET PO SCH ×3 (08:29→20:26)
[2022-02-04] MEDS: DOCUSATE SODIUM 100 MG CAPSULE PO SCH ×2 (08:31→20:26)
[2022-02-04] MEDS: QUEtiapine 25 MG TABLET PO SCH (20:26)
[2022-02-05 05:33] LABS: Calcium 9.7 MG/DL (8.5-10.1); Osmolality,Calculated 282.8 MOS/KG (273-304); Potassium 3.9 MMOL/L (3.5-5.1)
[2022-02-05 05:37] LABS: Basophils # 0.1 10*3/uL (0.0-0.2); Basophils % 0.5 % (0.0-0.8); Eosinophils # 0.2 10*3/uL (0.0-0.87); Eosinophils % 1.9 % (0.00-10.9); Hematocrit 54.6 VOL% (35.7-47.0); Hemoglobin 17.5 GM/DL (12.0-16.0); Immature Granulocytes % 0.6 %; Immature Granulocytes Absolute 0.06 #; Lymphocytes # 2.7 10*3/uL (1.4-4.0); Lymphocytes % 25.4 % (21.3-54.2); Mean Corpuscular HGB Conc 32.1 GM/DL (32-36); Mean Corpuscular Volume 89.7 FL (87-102); Mean Platelet Volume 10.4 FL (9.6-12.0); Monocytes % 9.2 % (1.7-12.7); Neutrophils % 62.4 % (38.7-73.9); Platelet Count 256 T/CUMM (130-400); Red Blood Count 6.09 MC/CUMM (3.8-5.5); Red Cell Distribution Width 16.8 % (9.3-17.3); White Blood Count 10.5 T/CUMM (4-12)
[2022-02-05] MEDS ORDERED: SODIUM CHLORIDE 0.9% 500 ML IV ONE (07:39)
[2022-02-05] MEDS: predniSONE 10 MG TABLET PO SCH (08:27)
[2022-02-05] MEDS: PANTOPRAZOLE 40 MG TABLET PO SCH (08:27)
[2022-02-05] MEDS: SERTRALINE 100 MG TABLET PO SCH (08:27)
[2022-02-05] MEDS: NEBIVOLOL 5 MG TABLET PO SCH (08:58)
[2022-02-05] MEDS: hydrALAZINE 25 MG TABLET PO SCH ×2 (08:58→14:03)
[2022-02-05] MEDS: DOCUSATE SODIUM 100 MG CAPSULE PO SCH (08:58)
[2022-02-05 13:12] LABS: Basophils # 0.1 10*3/uL (0.0-0.2); Basophils % 0.5 % (0.0-0.8); Eosinophils # 0.2 10*3/uL (0.0-0.87); Eosinophils % 1.1 % (0.00-10.9); Hematocrit 54.9 VOL% (35.7-47.0); Hemoglobin 17.5 GM/DL (12.0-16.0); Immature Granulocytes % 0.5 %; Immature Granulocytes Absolute 0.06 #; Lymphocytes # 1.9 10*3/uL (1.4-4.0); Lymphocytes % 14.6 % (21.3-54.2); Mean Corpuscular HGB Conc 31.9 GM/DL (32-36); Mean Corpuscular Volume 89.4 FL (87-102); Mean Platelet Volume 10.3 FL (9.6-12.0); Monocytes # 0.8 10*3/uL (0.11-0.8); Monocytes % 6.2 % (1.7-12.7); Neutrophils % 77.1 % (38.7-73.9); Platelet Count 277 T/CUMM (130-400); Red Blood Count 6.14 MC/CUMM (3.8-5.5); Red Cell Distribution Width 17.1 % (9.3-17.3); White Blood Count 13.2 T/CUMM (4-12)
[2022-02-05 13:41] LABS: Calcium 9.3 MG/DL (8.5-10.1); Osmolality,Calculated 289.4 MOS/KG (273-304); Potassium 3.8 MMOL/L (3.5-5.1)
[2022-02-05] MEDS ORDERED: SODIUM CHLORIDE 0.9% 1,000 ML IV SCH (14:00)
[2022-02-05 16:51] VITALS: BP 137/70
== END 2022-02-05 16:50 | disposition home or self-care (01) ==
LOC: N.TELES
PROVIDERS: ADMIT Family Medicine; ATTEND Family Medicine

== ENCOUNTER 2022-09-03 08:17 | Inpatient (IN) ==
[2022-09-03 09:12] LABS: Basophils # 0.1 10*3/uL (0.0-0.2); Basophils % 0.5 % (0.0-0.8); Eosinophils # 0.1 10*3/uL (0.0-0.87); Eosinophils % 0.8 % (0.00-10.9); Hematocrit 50.6 VOL% (35.7-47.0); Hemoglobin 16.6 GM/DL (12.0-16.0); Immature Granulocytes % 0.8 %; Immature Granulocytes Absolute 0.12 #; Lymphocytes # 1.7 10*3/uL (1.4-4.0); Lymphocytes % 10.7 % (21.3-54.2); Mean Corpuscular HGB Conc 32.8 GM/DL (32-36); Mean Corpuscular Volume 87.5 FL (87-102); Monocytes # 0.7 10*3/uL (0.11-0.8); Monocytes % 4.4 % (1.7-12.7); Neutrophils % 82.8 % (38.7-73.9); Platelet Count 157 T/CUMM (130-400); Red Blood Count 5.78 MC/CUMM (3.8-5.5); Red Cell Distribution Width 15.8 % (9.3-17.3); White Blood Count 15.48 T/CUMM (4-12)
[2022-09-03 09:28] LABS: INR 1.5; PT Patient Result 16.5 SECS (10.1-12.1)
[2022-09-03 09:33] LABS: Albumin 2.9 G/DL (3.4-5.0); Bilirubin,Total 1.7 MG/DL (0.20-1.00); Calcium 9.1 MG/DL (8.5-10.1); Osmolality,Calculated 291.8 MOS/KG (273-304); Potassium 2.9 MMOL/L (3.5-5.1); Total Protein 7.3 G/DL (6.4-8.2)
[2022-09-03 10:34] LABS: Amorphous Crystals,Urine Occasional /HPF (Few); Bacteria,Urine Moderate /HPF (Few); Glucose,Urine (UA) Negative (Negative); Ketones,Urine Negative (Negative); Protein,Urine >=300 mg/dL (Negative); RBC,Urine 43 /HPF (0-4); Urine Appearance Slightly Cloudy (Clear); Urine Color Dark Yellow (Yellow); Urine pH 5.5 (4.5-8.0)
[2022-09-03 10:35] LABS: Bilirubin,Urine Small mg/dL (Negative); Blood, Urine Large mg/dL (Negative); Nitrite,Urine Positive (Negative)
[2022-09-03 10:39] LABS: Barbiturates Screen,Urine Negative (Negative); Benzodiazepines Screen,Urine Negative (Negative); Cannabinoid Screen,Urine Negative (Negative); Opiate Screen,Urine Negative (Negative); Phencyclidine Screen,Urine Negative (Negative)
[2022-09-03] MEDS ORDERED: SODIUM CHLORIDE 0.9% 1,000 ML IV STA (10:53)
[2022-09-03] MEDS ORDERED: cefTRIAXone 1,000 MG in SODIUM CHLORIDE 0.9% 100 ML IV STA (10:53)
[2022-09-03] MEDS ORDERED: ASPIRIN 300 MG SUPP RECTAL STA (10:53)
[2022-09-03] MEDS ORDERED: ACETAMINOPHEN 325 MG TABLET PO PRN (11:25)
[2022-09-03] MEDS ORDERED: ONDANSETRON 4 MG/2 ML VIAL IV PRN (11:25)
[2022-09-03] MEDS ORDERED: ENOXAPARIN 40 MG/0.4 ML SYRINGE SUBCUT SCH (11:30)
[2022-09-03] MEDS: SODIUM CHLORIDE 0.9% 1,000 ML IV SCH ×2 (13:00→22:48)
[2022-09-03] MEDS ORDERED: POTASSIUM CHLORIDE RIDER 10 MEQ/100 ML PREMIX IV PRN (14:20)
[2022-09-03] MEDS ORDERED: ACETAMINOPHEN 650 MG SUPP RECTAL PRN ×2 (14:29→19:57)
[2022-09-03] MEDS ORDERED: ENOXAPARIN 60 MG/0.6 ML SYRINGE SUBCUT ONE (15:00)
[2022-09-03] MEDS ORDERED: POTASSIUM CHLORIDE INJ 50 MEQ in SODIUM CHLORIDE 0.9% 500 ML IV ONE (17:00)
[2022-09-03] MEDS: DOCUSATE SODIUM 100 MG CAPSULE PO SCH (20:57)
[2022-09-03] MEDS: methylPREDNISolone SOD SUC 40 MG/1 ML VIAL IV SCH (22:48)
[2022-09-03] MEDS: metroNIDAZOLE INJ 500 MG/100 ML PREMIX IV SCH (22:48)
[2022-09-03] MEDS ORDERED: MAGNESIUM SULF RIDER 4 GM/100 ML PREMIX IV PRN (23:55)
[2022-09-03] MEDS ORDERED: MAGNESIUM SULF RIDER 2 GM/50 ML PREMIX IV PRN (23:55)
[2022-09-04] MEDS ORDERED: LORazepam 2 MG/1 ML VIAL IV PRN (01:24)
[2022-09-04 03:00] LABS: Basophils % 0.3 % (0.0-0.8); Hematocrit 47.5 VOL% (35.7-47.0); Immature Granulocytes % 0.7 %; Immature Granulocytes Absolute 0.07 #; Lymphocytes # 0.6 10*3/uL (1.4-4.0); Lymphocytes % 5.2 % (21.3-54.2); Mean Corpuscular HGB Conc 31.6 GM/DL (32-36); Mean Corpuscular Volume 89.6 FL (87-102); Mean Platelet Volume 10.9 FL (9.6-12.0); Monocytes # 0.3 10*3/uL (0.11-0.8); Monocytes % 2.6 % (1.7-12.7); Neutrophils % 91.2 % (38.7-73.9); Platelet Count 135 T/CUMM (130-400); Red Cell Distribution Width 16.2 % (9.3-17.3); White Blood Count 10.68 T/CUMM (4-12)
[2022-09-04 03:57] LABS: Band Neutrophils 4 % (0-10); Lymphocytes 1 % (20-55); Platelet Estimate Normal; Total Cells Counted 100
[2022-09-04 04:32] LABS: Albumin 2.3 G/DL (3.4-5.0); Bilirubin,Total 1.5 MG/DL (0.20-1.00); Calcium 8.4 MG/DL (8.5-10.1); Potassium 4.3 MMOL/L (3.5-5.1); Total Protein 7.1 G/DL (6.4-8.2)
[2022-09-04] MEDS: metroNIDAZOLE INJ 500 MG/100 ML PREMIX IV SCH ×3 (05:56→20:10)
[2022-09-04] MEDS: ASPIRIN 300 MG SUPP RECTAL SCH (09:00)
[2022-09-04] MEDS: DOCUSATE SODIUM 100 MG CAPSULE PO SCH ×2 (09:00→21:08)
[2022-09-04] MEDS: PANTOPRAZOLE 40 MG TABLET PO SCH (09:00)
[2022-09-04] MEDS: methylPREDNISolone SOD SUC 40 MG/1 ML VIAL IV SCH ×2 (10:15→21:12)
[2022-09-04 10:36] LABS: Hepatitis B Core IgM Quant 0.09 Index; Hepatitis B Surface Ag Quant < 0.10 Index; Hepatitis B Surface Ag Result Non-Reactive (NonReactive); Hepatitis C Virus Ab Quant 0.02 Index; Hepatitis C Virus Ab Result Non-Reactive (NonReactive)
[2022-09-04] MEDS ORDERED: ENOXAPARIN 60 MG/0.6 ML SYRINGE SUBCUT SCH (13:00)
[2022-09-04] MEDS: cefTRIAXone 1,000 MG in SODIUM CHLORIDE 0.9% 100 ML IV SCH (13:35)
[2022-09-04] MEDS: SODIUM CHLORIDE 0.9% 1,000 ML IV SCH ×2 (20:00)
[2022-09-04] MEDS: cloNIDine 0.1 MG/24 HR PATCH TRANSDERM SCH (23:31)
[2022-09-05] MEDS: SODIUM CHLORIDE 0.9% 1,000 ML IV SCH (04:25)
[2022-09-05] MEDS: hydrALAZINE 20 MG/1 ML VIAL IV PRN ×2 (04:48→17:13)
[2022-09-05] MEDS: metroNIDAZOLE INJ 500 MG/100 ML PREMIX IV SCH ×3 (05:35→21:18)
[2022-09-05 05:55] LABS: Basophils % 0.2 % (0.0-0.8); Hematocrit 43.3 VOL% (35.7-47.0); Hemoglobin 13.6 GM/DL (12.0-16.0); Immature Granulocytes % 0.2 %; Immature Granulocytes Absolute 0.01 #; Lymphocytes # 0.6 10*3/uL (1.4-4.0); Lymphocytes % 9.6 % (21.3-54.2); Mean Corpuscular HGB Conc 31.4 GM/DL (32-36); Monocytes # 0.2 10*3/uL (0.11-0.8); Monocytes % 3.2 % (1.7-12.7); Neutrophils % 86.8 % (38.7-73.9); Platelet Count 116 T/CUMM (130-400); Red Blood Count 4.81 MC/CUMM (3.8-5.5); Red Cell Distribution Width 16.1 % (9.3-17.3); White Blood Count 6.28 T/CUMM (4-12)
[2022-09-05 06:12] LABS: Albumin 2.2 G/DL (3.4-5.0); Bilirubin,Total 0.6 MG/DL (0.20-1.00); Calcium 8.5 MG/DL (8.5-10.1); Total Protein 6.8 G/DL (6.4-8.2)
[2022-09-05] MEDS: ASPIRIN 300 MG SUPP RECTAL SCH (10:07)
[2022-09-05] MEDS: methylPREDNISolone SOD SUC 40 MG/1 ML VIAL IV SCH ×2 (10:08→21:01)
[2022-09-05] MEDS: DOCUSATE SODIUM 100 MG CAPSULE PO SCH ×2 (11:54→21:00)
[2022-09-05] MEDS: PANTOPRAZOLE 40 MG TABLET PO SCH (11:55)
[2022-09-05] MEDS: cefTRIAXone 1,000 MG in SODIUM CHLORIDE 0.9% 100 ML IV SCH (13:44)
[2022-09-05] MEDS: SODIUM CHLORIDE 0.45% 1,000 ML IV SCH (14:48)
[2022-09-05] MEDS: ENOXAPARIN 40 MG/0.4 ML SYRINGE SUBCUT SCH (21:00)
[2022-09-06] MEDS: metroNIDAZOLE INJ 500 MG/100 ML PREMIX IV SCH ×3 (04:30→21:07)
[2022-09-06 06:37] LABS: Albumin 2.2 G/DL (3.4-5.0); Bilirubin,Total 0.6 MG/DL (0.20-1.00); Calcium 8.2 MG/DL (8.5-10.1); Osmolality,Calculated 299.6 MOS/KG (273-304); Potassium 3.9 MMOL/L (3.5-5.1); Total Protein 6.4 G/DL (6.4-8.2)
[2022-09-06] MEDS: SODIUM CHLORIDE 0.45% 1,000 ML IV SCH ×2 (07:16→16:42)
[2022-09-06] MEDS: methylPREDNISolone SOD SUC 40 MG/1 ML VIAL IV SCH ×2 (09:10→21:06)
[2022-09-06] MEDS: PANTOPRAZOLE 40 MG VIAL IV SCH (09:10)
[2022-09-06] MEDS: ASPIRIN 300 MG SUPP RECTAL SCH (09:11)
[2022-09-06] MEDS: DILTIAZEM 30 MG TABLET PO SCH ×3 (11:39→21:05)
[2022-09-06] MEDS: DOCUSATE SODIUM 100 MG CAPSULE PO SCH ×2 (11:39→21:05)
[2022-09-06] MEDS: cefTRIAXone 1,000 MG in SODIUM CHLORIDE 0.9% 100 ML IV SCH (11:40)
[2022-09-06] MEDS: SILDENAFIL 20 MG TABLET PO SCH ×3 (11:40→21:04)
[2022-09-06] MEDS: ENOXAPARIN 40 MG/0.4 ML SYRINGE SUBCUT SCH (21:05)
[2022-09-06] MEDS: traMADol 50 MG TABLET PO PRN (22:13)
[2022-09-07] MEDS: metroNIDAZOLE INJ 500 MG/100 ML PREMIX IV SCH ×3 (04:40→22:28)
[2022-09-07 05:08] LABS: Calcium 8.1 MG/DL (8.5-10.1); Osmolality,Calculated 287.3 MOS/KG (273-304); Potassium 3.7 MMOL/L (3.5-5.1)
[2022-09-07] MEDS: DILTIAZEM 30 MG TABLET PO SCH ×3 (09:25→21:45)
[2022-09-07] MEDS: SILDENAFIL 20 MG TABLET PO SCH ×3 (09:25→21:43)
[2022-09-07] MEDS: methylPREDNISolone SOD SUC 40 MG/1 ML VIAL IV SCH (09:26)
[2022-09-07] MEDS: DOCUSATE SODIUM 100 MG CAPSULE PO SCH ×2 (09:33→21:45)
[2022-09-07] MEDS: PANTOPRAZOLE 40 MG VIAL IV SCH (09:33)
[2022-09-07] MEDS: ASPIRIN 300 MG SUPP RECTAL SCH (09:37)
[2022-09-07] MEDS: cefTRIAXone 1,000 MG in SODIUM CHLORIDE 0.9% 100 ML IV SCH (11:50)
[2022-09-07] MEDS: traMADol 50 MG TABLET PO PRN (21:43)
[2022-09-07] MEDS: ENOXAPARIN 40 MG/0.4 ML SYRINGE SUBCUT SCH (21:44)
[2022-09-07] MEDS: hydrALAZINE 20 MG/1 ML VIAL IV PRN (21:45)
[2022-09-08] MEDS: MELATONIN 3 MG TABLET PO SCH ×2 (00:47→22:00)
[2022-09-08] MEDS: metroNIDAZOLE INJ 500 MG/100 ML PREMIX IV SCH (04:10)
[2022-09-08 06:23] LABS: Osmolality,Calculated 288.8 MOS/KG (273-304); Potassium 2.7 MMOL/L (3.5-5.1)
[2022-09-08] MEDS: DOCUSATE SODIUM 100 MG CAPSULE PO SCH ×2 (08:55→22:17)
[2022-09-08] MEDS: PANTOPRAZOLE 40 MG VIAL IV SCH (08:56)
[2022-09-08] MEDS: predniSONE 20 MG TABLET PO SCH (08:56)
[2022-09-08] MEDS: SILDENAFIL 20 MG TABLET PO SCH ×3 (08:58→22:00)
[2022-09-08] MEDS: DILTIAZEM 30 MG TABLET PO SCH ×3 (09:04→22:00)
[2022-09-08] MEDS: ASPIRIN 300 MG SUPP RECTAL SCH (09:49)
[2022-09-08] MEDS: levETIRAcetam 500 MG TABLET PO SCH ×2 (10:30→22:00)
[2022-09-08] MEDS: cefTRIAXone 1,000 MG in SODIUM CHLORIDE 0.9% 100 ML IV SCH (14:15)
[2022-09-08] MEDS: POTASSIUM CHLORIDE 20 MEQ TABLET PO PRN (22:00)
[2022-09-08] MEDS: ENOXAPARIN 40 MG/0.4 ML SYRINGE SUBCUT SCH (22:00)
[2022-09-08] MEDS: traMADol 50 MG TABLET PO PRN (22:08)
[2022-09-09] MEDS: POTASSIUM CHLORIDE 20 MEQ TABLET PO PRN ×5 (00:04→12:13)
[2022-09-09 06:06] LABS: Calcium 8.4 MG/DL (8.5-10.1); Osmolality,Calculated 285.8 MOS/KG (273-304); Potassium 3.5 MMOL/L (3.5-5.1)
[2022-09-09] MEDS ORDERED: LOPERAMIDE 2 MG CAPSULE PO PRN (09:49)
[2022-09-09] MEDS: DILTIAZEM 30 MG TABLET PO SCH ×3 (09:51→21:51)
[2022-09-09] MEDS: SILDENAFIL 20 MG TABLET PO SCH ×3 (09:51→21:50)
[2022-09-09] MEDS: levETIRAcetam 500 MG TABLET PO SCH ×2 (09:51→21:51)
[2022-09-09] MEDS: predniSONE 20 MG TABLET PO SCH (09:51)
[2022-09-09] MEDS: DOCUSATE SODIUM 100 MG CAPSULE PO SCH ×2 (10:26→21:51)
[2022-09-09] MEDS: ASPIRIN 300 MG SUPP RECTAL SCH (10:32)
[2022-09-09] MEDS: ASPIRIN EC 325 MG TABLET PO SCH (12:12)
[2022-09-09] MEDS: cefTRIAXone 1,000 MG in SODIUM CHLORIDE 0.9% 100 ML IV SCH (12:13)
[2022-09-09] MEDS: NEBIVOLOL 5 MG TABLET PO SCH (17:02)
[2022-09-09] MEDS: ZINC OXIDE PASTE 113 GM TUBE TOP SCH ×2 (18:13→21:51)
[2022-09-09] MEDS: MELATONIN 3 MG TABLET PO SCH (21:51)
[2022-09-09] MEDS: ENOXAPARIN 40 MG/0.4 ML SYRINGE SUBCUT SCH (21:53)
[2022-09-10 05:32] LABS: Basophils % 0.2 % (0.0-0.8); Eosinophils # 0.1 10*3/uL (0.0-0.87); Eosinophils % 2.2 % (0.00-10.9); Hematocrit 43.4 VOL% (35.7-47.0); Hemoglobin 14.1 GM/DL (12.0-16.0); Immature Granulocytes % 0.6 %; Immature Granulocytes Absolute 0.04 #; Lymphocytes # 1.8 10*3/uL (1.4-4.0); Lymphocytes % 28.3 % (21.3-54.2); Mean Corpuscular HGB Conc 32.5 GM/DL (32-36); Mean Corpuscular Volume 88.8 FL (87-102); Mean Platelet Volume 10.4 FL (9.6-12.0); Monocytes # 0.3 10*3/uL (0.11-0.8); Monocytes % 5.1 % (1.7-12.7); Neutrophils % 63.6 % (38.7-73.9); Platelet Count 169 T/CUMM (130-400); Red Blood Count 4.89 MC/CUMM (3.8-5.5); Red Cell Distribution Width 16.9 % (9.3-17.3); White Blood Count 6.29 T/CUMM (4-12)
[2022-09-10] MEDS: PANTOPRAZOLE 40 MG TABLET PO SCH (05:40)
[2022-09-10 06:01] LABS: Calcium 8.4 MG/DL (8.5-10.1); Osmolality,Calculated 279.3 MOS/KG (273-304); Potassium 3.6 MMOL/L (3.5-5.1)
[2022-09-10] MEDS: SILDENAFIL 20 MG TABLET PO SCH ×3 (08:10→20:10)
[2022-09-10] MEDS: ZINC OXIDE PASTE 113 GM TUBE TOP SCH (08:10)
[2022-09-10] MEDS: NEBIVOLOL 5 MG TABLET PO SCH (08:10)
[2022-09-10] MEDS: DOCUSATE SODIUM 100 MG CAPSULE PO SCH ×2 (08:10→20:14)
[2022-09-10] MEDS: ASPIRIN EC 325 MG TABLET PO SCH (08:11)
[2022-09-10] MEDS: levETIRAcetam 500 MG TABLET PO SCH ×2 (08:11→20:11)
[2022-09-10] MEDS: predniSONE 20 MG TABLET PO SCH (08:11)
[2022-09-10] MEDS: DILTIAZEM CD 180 MG CAPSULE PO SCH ×2 (11:05→20:12)
[2022-09-10] MEDS: MELATONIN 3 MG TABLET PO SCH (20:12)
[2022-09-10] MEDS: ENOXAPARIN 40 MG/0.4 ML SYRINGE SUBCUT SCH (20:13)
[2022-09-11] MEDS: PANTOPRAZOLE 40 MG TABLET PO SCH (06:06)
[2022-09-11] MEDS: ZINC OXIDE PASTE 113 GM TUBE TOP SCH ×2 (06:18→09:18)
[2022-09-11] MEDS: ASPIRIN EC 325 MG TABLET PO SCH (09:14)
[2022-09-11] MEDS: SILDENAFIL 20 MG TABLET PO SCH ×2 (09:15→14:39)
[2022-09-11] MEDS: predniSONE 20 MG TABLET PO SCH (09:15)
[2022-09-11] MEDS: levETIRAcetam 500 MG TABLET PO SCH (09:15)
[2022-09-11] MEDS: NEBIVOLOL 5 MG TABLET PO SCH (09:15)
[2022-09-11] MEDS: DOCUSATE SODIUM 100 MG CAPSULE PO SCH (09:15)
[2022-09-11] MEDS: DILTIAZEM CD 180 MG CAPSULE PO SCH (09:16)
[2022-09-11] MEDS: cloNIDine 0.1 MG/24 HR PATCH TRANSDERM SCH (09:22)
[2022-09-11 16:39] VITALS: BP 148/76
== END 2022-09-11 17:38 | disposition home health service (06) | DRG 871 ==
LOC: N.ED 08:17 → N.EDINP 11:25 → N.2E 14:09
PROVIDERS: ADMIT Internal Medicine; ATTEND Internal Medicine